=== PATIENT | female | born 1975 | race Caucasian/White ===

== ENCOUNTER 2023-12-19 19:18 | Inpatient (IN) | payer MEDICARE, MEDICAID, SELFPAY ==
[2023-12-19 20:00] VITALS: BP 127/81; PULSE 94; RESP 16; TEMP 36.3; O2SAT 97
--- NOTE | 2023-12-20 06:21 | PC.ADMIT ---
Addendum entered by Razia Bernabe RN 12/20/23 06:50: Patient also has blistered rash to left distal wrist, will need consult. Original Note: Pt is a 48 yo female admitted from [facility] for increased agitation at home. Pt has hx of anoxic brain injury at age 4, mood dysregulation, anxiety, DM type 2, HTN, HLD, and Crohn's. Pt is oriented to self and place only, developmentally delayed. Pt difficult to engage in admission, did sign CV with assistance from provider. Pt currently denies SI/HI/AVH/Depression, states she sometimes gets anxious. Pt makes good eye contact, speech delay noted. Pt has mild contractures to bilateral hands and arms, as well as bruise to each upper arm. Pt recently had foot pain during a hospitalization which caused her to remain in bed for extended period leading to bilateral leg weakness. Pt continues to have foot pain and requires one assist to ambulate, only walks short distances. Arrives in incontinence brief but unable to say why. Per crisis eval, pt lives at home with her mother who is air conditioning unit tester. Per mother, patient has had increasing anxiety and shaking at home, increased agitation toward mother. Pt refused to sign any additional paperwork.
[2023-12-20 06:50] LABS: Glucose, Whole Blood 77 mg/dL (60-115)
[2023-12-20 08:00] VITALS: BP 125/60; PULSE 89; RESP 18; TEMP 36.2; O2SAT 95
[2023-12-20 08:59] LABS: Glucose, Whole Blood 110 mg/dL (60-115)
[2023-12-20] MEDS: hydrOXYzine HCL 25 MG TABLET PO (09:28)
[2023-12-20] MEDS: Magnesium Hydrox/Alum Hydrox 30 ML ORAL.SUSP PO (09:28)
--- NOTE | 2023-12-20 12:03 | HO.PM.IMCN ---
History of Present Illness Data of Consult Service Date: 12/20/23 Requesting physician: Cleopatra Ramachandran Primary Care Provider: Unknown Physician HPI Reason for consult: Medical H and P 48-year-old female with history of Crohn's disease s/p colon resection x2 with chronic diarrhea, history of anoxic brain injury, cognitive developmental delay, mood disorder, type 2 diabetes admitted to adult Psychiatry with consult placed hospitalist service for medical H& P. The patient is a limited historian secondary to developmental delay. She is reporting diffuse abdominal pain which per ED record and nursing report, is chronic. She also has chronic diarrhea but denies any bloody stool. She has no other complaints at this time. While at [facility], hematology studies unremarkable. Renal function baseline, electrolyte levels normal. Glucose 173. Point of care glucose this morning 110. Urinalysis negative. C diff PCR negative. Urine tox screen positive for benzodiazepines only. Patient denies any alcohol use, illicit drug use, or cigarette smoking. At this time, there does not appear to be any acute medical issues. [facility] Medical History Cognitive developmental delay Crohn's disease Anoxic brain injury Type 2 diabetes mellitus Surgical History S/P colon resection Social History Household Members: Family Patient Tobacco Use Status: Never used Tobacco Use of substances other than those prescribed or required for medical reasons: No Currently Displaying Signs/Symptoms of Drug Intoxication Withdrawal: No Have you been hit, kicked, punched, or otherwise hurt by someone within the past year? If so, by whom?: No Advance Directives: No Advance Directives Information Provided: No Do you have thoughts of harming others: None Do you have a plan to hurt others: No Plan Patient : No Meds Allergies Allergy/AdvReac Type Severity Reaction Status Date / Time Cephalosporins Allergy Unknown Verified 12/19/23 23:46 sulfamethoxazole Allergy Rash Verified 12/19/23 23:46 [From Bactrim] trimethoprim Allergy Unknown Verified 12/19/23 23:46 haloperidol AdvReac Agitated Verified 12/19/23 23:46 Active Medications: Current Medications Acetaminophen (Acetaminophen 325 Mg Tablet) 650 mg PO Q6H PRN PRN Reason: Headache/Pain Mild Scale (1-3) Al Hydroxide/Mg Hydroxide (Magnesium Hydrox/Alum Hydrox 30 Ml Oral.Susp) 30 ml PO Q6H PRN PRN Reason: Heartburn/Nausea Last Admin: 12/20/23 09:28 Dose: 30 ml Cyanocobalamin (Cyanocobalamin (Vitamin B-12) 1,000 Mcg Tablet) 1,000 mcg PO ONCE ONE Stop: 12/20/23 11:53 Divalproex Sodium (Divalproex Sodium Er 500 Mg Tab.Er.24h) 1,500 mg PO BID DEBBIE Hydroxyzine HCl (Hydroxyzine Hcl 25 Mg Tablet) 25 mg PO Q6H PRN PRN Reason: Anxiety Last Admin: 12/20/23 09:28 Dose: 25 mg Magnesium Hydroxide (Milk Of Magnesia 30 Ml Oral.Susp) 30 ml PO DAILY PRN PRN Reason: Constipation Non-Formulary Medication (Diclofenac Sodium Topical 1%) 4 g TOPICAL QID DEBBIE Omeprazole (Omeprazole 40 Mg Capsule.Dr) 40 mg PO DAILY@0630 DEBBEI Trazodone HCl (Trazodone Hcl 50 Mg Tablet) 50 mg PO BEDTIME MRX1 PRN PRN Reason: Insomnia Home Medications ?Medication ?Instructions ?Recorded ?Confirmed ?Last Taken ?Type dexlansoprazole 60 mg 60 mg PO DAILY 12/19/23 12/20/23 Unknown History capsule,biphase delayed release diclofenac sodium 1 % topical gel 1 ea topical QID 12/19/23 12/20/23 Unknown History divalproex 250 mg tablet,extended 1,500 mg PO BID 12/19/23 12/20/23 Unknown History release 24 hr (Depakote ER) fluoxetine 20 mg capsule 80 mg PO DAILY 12/19/23 12/20/23 Unknown History fluticasone propionate 50 1 spray intranasal BID 12/19/23 12/20/23 Unknown History mcg/actuation nasal spray,suspension gabapentin 400 mg capsule 400 mg PO QID 12/19/23 12/20/23 Unknown History glimepiride 4 mg tablet 4 mg PO QAM 12/19/23 12/20/23 Unknown History cyanocobalamin (vitamin B-12) 1,000 mcg PO DAILY 12/20/23 12/20/23 Unknown History 1,000 mcg tablet ergocalciferol (vitamin D2) 1,250 1,250 mcg PO Q2W 12/20/23 12/20/23 Unknown History mcg (50,000 unit) capsule hydroxyzine pamoate 50 mg capsule 50 mg PO BID PRN anxiety 12/20/23 12/20/23 Unknown History levonorgestrel 0.15 mg-ethinyl 1 tab PO DAILY 12/20/23 12/20/23 Unknown History estradiol 30 mcg tablets,3 mos pack(91) levothyroxine 75 mcg tablet 75 mcg PO QAM 12/20/23 12/20/23 Unknown History lisinopril 2.5 mg tablet 2.5 mg PO DAILY 12/20/23 12/20/23 Unknown History lorazepam 0.5 mg tablet 0.5 mg PO DAILY anxiety 12/20/23 12/20/23 Unknown History lurasidone 80 mg tablet 80 mg PO DAILY 12/20/23 12/20/23 Unknown History metformin 1,000 mg tablet 1,000 mg PO QAM 12/20/23 12/20/23 Unknown History metformin 1,000 mg tablet 1,000 mg PO QAM 12/20/23 12/20/23 Unknown History omeprazole 40 mg capsule,delayed 40 mg PO DAILY 12/20/23 12/20/23 Unknown History release pantoprazole 20 mg tablet,delayed 20 mg PO Q12H 12/20/23 12/20/23 Unknown History release pravastatin 20 mg tablet 20 mg PO BEDTIME cholesterol 12/20/23 12/20/23 Unknown History sodium bicarbonate 650 mg tablet 1,300 mg PO TID 12/20/23 12/20/23 Unknown History sucralfate 1 gram tablet 1 g PO QID 12/20/23 12/20/23 Unknown History tirzepatide 2.5 mg/0.5 mL 2.5 mg subcut QWEEK 12/20/23 12/20/23 Unknown History subcutaneous pen injector (Mounjaro) Physical Exam Vital Signs and Narrative: Vital Signs: Last Vital Signs Temp 97.2 F 12/20/23 08:00 Pulse 89 12/20/23 08:00 Resp 18 12/20/23 08:00 BP 125/60 12/20/23 08:00 Pulse Ox 95 12/20/23 08:00 O2 Del Method Room Air 12/20/23 08:00 Constitutional - Awake and Alert, No apparent distress Eyes - refused CN exam, but eyes appear to be tracking appropriately, pupils equal in size Cardiovascular - S1S2, RRR, No edema Respiratory - Normal lung expansion, Normal respiratory effort, No respiratory distress, CTA bilaterally Gastrointestinal - NT / ND; +BS; No rebound or guarding Extremities - no calf tenderness bilaterally, no swelling Musculoskeletal - Normal inspection, normal ROM Skin - Warm/Dry Neurological - Alert & oriented to self, refused CN exam, but eyes appear to be tracking appropriately, pupils equal in size, 5/5 strength BUE and BLE Psychological - Appropriate affect Results Labs Labs: Laboratory Results - last 24 hr 12/20/23 12/20/23 06:46 08:41 POC Glucose 77 110 Assessment and Plan (1) Routine medical exam: Status: Acute Plan 48-year-old female with history of Crohn's disease s/p colon resection x2 with chronic diarrhea, history of anoxic brain injury, cognitive developmental delay, mood disorder, type 2 diabetes admitted to adult Psychiatry with consult placed hospitalist service for medical H& P. #Mood disorder/cognitive delay -plan per Psychiatry # Crohn's disease s/p colon resection -does not appear to be in acute exacerbation. ?abd pain/chronic diarrhea r/t crohns vs IR metformin # [id number] type 2 diabetes -per rn, last hemoglobin A1c 7.4% -recommend checking POC b.i.d. -recommend diabetic diet if patient agreeable -change metformin 1000mg to ER formulation to see if this alleviates any of her abdominal pain/diarrhea -continue glimepiride -continue lisinopril for renal protection given history of diabetes. Does not appear to have any history of hypertension documented # hypothyroidism -continue levothyroxine # Chronic diarrhea/abd pain -as above. Cdiff pcr negative. Thank you for allowing me to participate in this consult. Signing off at this time. Please do not hesitate to call for further questions or for any acute medical issues
--- NOTE | 2023-12-20 12:33 | HO.PSYADMNOT ---
HPI Date of Service: 12/20/23 Chief Complaint: UNSPECIFIED MOOD DISORDER Sources of Information: patient interviewed, chart reviewed and crisis/core team assessment reviewed HPI Subjective Notes: Conditional Voluntary Healthcare Proxy: No Guardianship: No Medical Problems Affecting Mental Status: No Narrative: Patient is a 48-year-old female with a history of Crohn's disease anoxic brain injury cognitive developmental delay and anxiety who presented to [facility] with increasing aggression she was transferred to [facility] and admitted to on conditional voluntary. Patient has a legal guardian who is an trade mark attorney Suni Dickinson at [phone]. I was unable to reach Suni by phone; I spoke with brinda's mother who was her guardian up unitl fall 2022. She will be faxing guardianship paperwork. Patient is cooperative and pleasant. She remains in good behavioral control. She denies SI or HI. Patient has a DDS worker. She does have outpatient therapy and psychiatrist although the details of that an unknown Past Psychiatric History: Patient has history of inpatient level of care for mental health last hospitalization was approximately 5 months ago Medical Evaluation Reviewed: Yes [facility] Medical History (Updated 12/21/23 @ 14:59 by Cleopatra Ramachandran APRN) Cognitive developmental delay Crohn's disease Anoxic brain injury Type 2 diabetes mellitus Surgical History S/P colon resection Family History: Living with her mother Avis who is her caregiver. Avis is 70 years old and recently transferred guardianship to a local trade mark attorney in [place]. Social History: Patient had anoxic brain injury age 4. Substance History: None known Trauma History: None known Diagnostics Vital Signs (24Hr): Vital Signs - 24 hr 12/19/23 20:00 12/20/23 08:00 Temperature 97.3 F 97.2 F Pulse Rate 94 89 Respiratory Rate 16 18 Blood Pressure 127/81 125/60 Pulse Oximetry 97 95 Oxygen Delivery Method Room Air Room Air Labs 12/21/23 07:09 Labs: Laboratory Results - last 48 hr 12/20/23 12/20/23 06:46 08:41 POC Glucose 77 110 Meds/Allergies Meds Home Medications ?Medication ?Instructions ?Recorded ?Confirmed ?Type dexlansoprazole 60 mg 60 mg PO DAILY 12/19/23 12/20/23 History capsule,biphase delayed release diclofenac sodium 1 % topical gel 1 ea topical QID 12/19/23 12/20/23 History divalproex 250 mg tablet,extended 1,500 mg PO BID 12/19/23 12/20/23 History release 24 hr (Depakote ER) fluoxetine 20 mg capsule 80 mg PO DAILY 12/19/23 12/20/23 History fluticasone propionate 50 1 spray intranasal BID 12/19/23 12/20/23 History mcg/actuation nasal spray,suspension gabapentin 400 mg capsule 400 mg PO QID 12/19/23 12/20/23 History glimepiride 4 mg tablet 4 mg PO QAM 12/19/23 12/20/23 History cyanocobalamin (vitamin B-12) 1,000 mcg PO DAILY 12/20/23 12/20/23 History 1,000 mcg tablet ergocalciferol (vitamin D2) 1,250 1,250 mcg PO Q2W 12/20/23 12/20/23 History mcg (50,000 unit) capsule hydroxyzine pamoate 50 mg capsule 50 mg PO BID PRN anxiety 12/20/23 12/20/23 History levonorgestrel 0.15 mg-ethinyl 1 tab PO DAILY 12/20/23 12/20/23 History estradiol 30 mcg tablets,3 mos pack(91) levothyroxine 75 mcg tablet 75 mcg PO QAM 12/20/23 12/20/23 History lisinopril 2.5 mg tablet 2.5 mg PO DAILY 12/20/23 12/20/23 History lorazepam 0.5 mg tablet 0.5 mg PO DAILY anxiety 12/20/23 12/20/23 History lurasidone 80 mg tablet 80 mg PO DAILY 12/20/23 12/20/23 History metformin 1,000 mg tablet 1,000 mg PO QAM 12/20/23 12/20/23 History metformin 1,000 mg tablet 1,000 mg PO QAM 12/20/23 12/20/23 History omeprazole 40 mg capsule,delayed 40 mg PO DAILY 12/20/23 12/20/23 History release pantoprazole 20 mg tablet,delayed 20 mg PO Q12H 12/20/23 12/20/23 History release pravastatin 20 mg tablet 20 mg PO BEDTIME cholesterol 12/20/23 12/20/23 History sodium bicarbonate 650 mg tablet 1,300 mg PO TID 12/20/23 12/20/23 History sucralfate 1 gram tablet 1 g PO QID 12/20/23 12/20/23 History tirzepatide 2.5 mg/0.5 mL 2.5 mg subcut QWEEK 12/20/23 12/20/23 History subcutaneous pen injector (Mounjaro) Allergies Allergies Allergy/AdvReac Type Severity Reaction Status Date / Time Cephalosporins Allergy Unknown Verified 12/19/23 23:46 sulfamethoxazole Allergy Rash Verified 12/19/23 23:46 [From Bactrim] trimethoprim Allergy Unknown Verified 12/19/23 23:46 haloperidol AdvReac Agitated Verified 12/19/23 23:46 Mental Status Exam Mental Status Exam Patient Appearance: Disheveled Patient Orientation: Person, Place, Time and Situation Level of Consciousness: Awake Patient Behavior: Appropriate Mood Description: Appropriate Affect Description: Appropriate Patient Cognition Impaired: Yes Ability to Follow Directions: Good Speech Pattern: Spontaneous Speech Hallucinations: None Thought Process: Goal Oriented Thought Content: positive for [place] Judgement: Fair Assessment & Plan Assessment & Plan (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: Status: Acute Code(s): F06.4 - Anxiety disorder due to known physiological condition (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: Status: Acute Code(s): F06.30 - Mood disorder due to known physiological condition, unspecified; S06.9XAS - Unspecified intracranial injury with loss of consciousness status unknown, sequela Plan liana to m5 on cv 15 min checks continue home medications obtain guardian ship Paperwork contact guardian and collect collateral info discharge planning ' Patient educated on: diagnosis, medication risk/benefits and therapeutic strategies Informed Consent: further education needed Reason for continued inpatient stay Substantial Risk for: harm to self, harm to others and inability to function Statement Statement: I have reviewed the history and physical and performed a pertinent examination on my patient. No changes have occurred unless specified. If the History and Physical was not performed prior to admission, the Hospitalist's service will be consulted for completing the admission physical. Time Spent With Patient Time: Total time managing care of this patient today ____ minutes.
[2023-12-20] MEDS: Gabapentin 400 MG CAPSULE PO ×3 (13:09→23:09)
[2023-12-20] MEDS: Loperamide HCl 2 MG CAPSULE PO ×2 (13:09→23:10)
[2023-12-20] MEDS: Sucralfate 1 GM TABLET PO ×3 (13:09→23:10)
[2023-12-20] MEDS: Levothyroxine Sodium 75 MCG TABLET PO (13:09)
[2023-12-20] MEDS: FLUoxetine HCl 20 MG CAPSULE 80 MG PO (13:09)
[2023-12-20] MEDS: Omeprazole 40 MG CAPSULE.DR PO (13:09)
[2023-12-20] MEDS: Divalproex Sodium ER 500 MG TAB.ER.24H 1500 MG PO ×2 (13:09→23:10)
[2023-12-20] MEDS: Cyanocobalamin (Vitamin B-12) 1,000 MCG TABLET 1000 MCG PO (13:09)
[2023-12-20] MEDS: LORazepam 0.5 MG TABLET PO (13:09)
[2023-12-20] MEDS: metFORMIN HCl ER 500 MG TAB.ER.24H 1000 MG PO (13:09)
[2023-12-20 20:00] VITALS: BP 128/79; PULSE 114; RESP 16; TEMP 36.1; O2SAT 95
[2023-12-20] MEDS: Sodium Bicarbonate 650 MG TABLET 1300 MG PO (23:09)
[2023-12-20] MEDS: Pravastatin Sodium 20 MG TABLET PO (23:10)
[2023-12-21] MEDS: Levothyroxine Sodium 75 MCG TABLET PO (07:19)
[2023-12-21] MEDS: Omeprazole 40 MG CAPSULE.DR PO (07:19)
[2023-12-21 07:34] LABS: Estimated Average Glucose 169 mg/dL; Hemoglobin A1c % 7.5 % (<6.0)
[2023-12-21 07:41] LABS: Cholesterol 165 mg/dL (<200); HDL Cholesterol 33 mg/dL (>40); LDL Cholesterol Calculated 82 mg/dL (<100); Magnesium 1.5 mg/dL (1.6-2.6); Triglycerides 253 mg/dL (<150)
[2023-12-21 07:43] LABS: Estimated Glomerular Filt Rate > 60
[2023-12-21 07:54] LABS: Thyroid Stimulating Hormone 1.98 uIU/mL (0.32-4.0)
[2023-12-21 08:09] LABS: Folate 12.5 ng/mL (> or = 4.0); Vitamin B12 1784 pg/mL (200-900)
[2023-12-21 08:37] LABS: Glucose, Whole Blood 197 mg/dL (60-115)
[2023-12-21 08:45] VITALS: BP 140/68; PULSE 114; RESP 16; TEMP 35.9; O2SAT 95
[2023-12-21] MEDS: metFORMIN HCl ER 500 MG TAB.ER.24H 1000 MG PO (08:58)
[2023-12-21] MEDS: Lurasidone HCl 80 MG TABLET PO (08:59)
[2023-12-21] MEDS: Gabapentin 400 MG CAPSULE PO ×4 (08:59→20:52)
[2023-12-21] MEDS: FLUoxetine HCl 20 MG CAPSULE 80 MG PO (08:59)
[2023-12-21] MEDS: Sucralfate 1 GM TABLET PO ×4 (08:59→20:52)
[2023-12-21] MEDS: Sodium Bicarbonate 650 MG TABLET 1300 MG PO ×3 (09:01→20:52)
[2023-12-21 09:02] VITALS: BP 140/68
[2023-12-21] MEDS: Divalproex Sodium ER 500 MG TAB.ER.24H 1500 MG PO ×2 (09:02→20:51)
[2023-12-21] MEDS: lisinopriL 2.5 MG TABLET PO (09:02)
[2023-12-21] MEDS: glipiZIDE 10 MG TABLET PO (09:07)
[2023-12-21] MEDS: Triamcinolone Acet 0.1 % Cream 15 GM TUBE 1 APPL TOPICAL ×2 (09:08→22:15)
[2023-12-21] MEDS: Fluticasone Propionate Nasal 16 GM SPRAY 1 SPRAY NOSTRIL-B (09:08)
--- NOTE | 2023-12-21 16:42 | HO.PSYCHPN ---
Subjective Subjective Date of Service: 12/14/23 Reason For Visit: UNSPECIFIED MOOD DISORDER Subjective Notes: Conditional Voluntary Interim History: spoke with pts mother today; unable to reach guardian; mother faxed copy of current court order which includes [place] order and sub judgemnt ; it does not appear to say its limits her ability to consent to treatmetn or admission. Copy of order in chart. T/c to guardian -no answer. Pt is bright, cooperative, somewhat cheerful upon apprach; she showered, accepts help and is in good behavioral control Medication Compliance: Yes Side effects from medications: No Attending Groups: No Review of Systems Acute medical concerns: No Medical Review of Systems: unchanged Mental Status Exam Mental Status Exam Patient Appearance: Well Grooomed and Appropriate Patient Orientation: Person, Place, Time and Situation Level of Consciousness: Awake Patient Behavior: Appropriate Mood Description: Appropriate and Anxious Affect Description: Appropriate Patient Cognition Impaired: Yes Ability to Follow Directions: Good Speech Pattern: Spontaneous Speech Judgement: Fair Diagnostics Vital Signs (24Hr): Vital Signs - 24 hr 12/20/23 20:00 12/21/23 08:45 12/21/23 09:02 Temperature 96.9 F 96.6 F L Pulse Rate 114 H 114 H Respiratory Rate 16 16 Blood Pressure 128/79 140/68 H 140/68 H Pulse Oximetry 95 95 Oxygen Delivery Method Room Air Room Air Labs 12/21/23 07:09 Labs: Laboratory Results - last 48 hr 12/20/23 12/20/23 12/21/23 06:46 08:41 07:09 Creatinine 0.75 Estim Creat Clear Calc TNP Estimated GFR > 60 POC Glucose 77 110 Estimat Average Glucose 169 Hemoglobin A1c % 7.5 H Magnesium 1.5 L Triglycerides 253 H Cholesterol 165 LDL Cholesterol, Calc 82 HDL Cholesterol 33 L Vitamin B12 1784 H Folate 12.5 TSH 1.98 Free T4 1.00 12/21/23 08:31 Creatinine Estim Creat Clear Calc Estimated GFR POC Glucose 197 H Estimat Average Glucose Hemoglobin A1c % Magnesium Triglycerides Cholesterol LDL Cholesterol, Calc HDL Cholesterol Vitamin B12 Folate TSH Free T4 Medications Medications Current Medications Acetaminophen (Acetaminophen 325 Mg Tablet) 650 mg PO Q6H PRN PRN Reason: Headache/Pain Mild Scale (1-3) Al Hydroxide/Mg Hydroxide (Magnesium Hydrox/Alum Hydrox 30 Ml Oral.Susp) 30 ml PO Q6H PRN PRN Reason: Heartburn/Nausea Last Admin: 12/20/23 09:28 Dose: 30 ml Divalproex Sodium (Divalproex Sodium Er 500 Mg Tab.Er.24h) 1,500 mg PO BID [facility] Last Admin: 12/21/23 09:02 Dose: 1,500 mg Fluoxetine HCl (Fluoxetine Hcl 20 Mg Capsule) 80 mg PO DAILY [facility] Last Admin: 12/21/23 08:59 Dose: 80 mg Fluticasone Propionate (Fluticasone Propionate Nasal 16 Gm [place]) 1 spray NOSTRIL-B DAILY [facility] Last Admin: 12/21/23 09:08 Dose: 1 spray Gabapentin (Gabapentin 400 Mg Capsule) 400 mg PO QID [facility] Last Admin: 12/21/23 13:08 Dose: 400 mg Glipizide (Glipizide 10 Mg Tablet) 10 mg PO DAILY [facility] Last Admin: 12/21/23 09:07 Dose: 10 mg Hydroxyzine HCl (Hydroxyzine Hcl 50 Mg Tablet) 50 mg PO BID PRN PRN Reason: Anxiety Hydroxyzine HCl (Hydroxyzine Hcl 25 Mg Tablet) 25 mg PO DAILY PRN PRN Reason: Anxiety Levothyroxine Sodium (Levothyroxine Sodium 75 Mcg Tablet) 75 mcg PO DAILY@0600 [facility] Last Admin: 12/21/23 07:19 Dose: 75 mcg Lisinopril (Lisinopril 2.5 Mg Tablet) 2.5 mg PO DAILY [facility]; Protocol Last Admin: 12/21/23 09:02 Dose: 2.5 mg Loperamide HCl (Loperamide Hcl 2 Mg Capsule) 2 mg PO Q6H PRN PRN Reason: Diarrhea Last Admin: 12/20/23 23:10 Dose: 2 mg Lorazepam (Lorazepam 0.5 Mg Tablet) 0.5 mg PO DAILY PRN PRN Reason: Anxiety Last Admin: 12/20/23 13:09 Dose: 0.5 mg Lurasidone HCl (Lurasidone Hcl 80 Mg Tablet) 80 mg PO DAILY [facility] Last Admin: 12/21/23 08:59 Dose: 80 mg Magnesium Hydroxide (Milk Of Magnesia 30 Ml Oral.Susp) 30 ml PO DAILY PRN PRN Reason: Constipation Metformin HCl (Metformin Hcl Er 500 Mg Tab.Er.24h) 1,000 mg PO DAILY [facility] Last Admin: 12/21/23 08:58 Dose: 1,000 mg Non-Formulary Medication (Seasonale) 0 mg PO DAILY [facility] Omeprazole (Omeprazole 40 Mg Capsule.Dr) 40 mg PO DAILY@0630 [facility] Last Admin: 12/21/23 07:19 Dose: 40 mg Pravastatin Sodium (Pravastatin Sodium 20 Mg Tablet) 20 mg PO BEDTIME [facility] Last Admin: 12/20/23 23:10 Dose: 20 mg Sodium Bicarbonate (Sodium Bicarbonate 650 Mg Tablet) 1,300 mg PO TID [facility] Last Admin: 12/21/23 15:27 Dose: 1,300 mg Sucralfate (Sucralfate 1 Gm Tablet) 1 gm PO QID [facility] Last Admin: 12/21/23 13:07 Dose: 1 gm Trazodone HCl (Trazodone Hcl 50 Mg Tablet) 50 mg PO BEDTIME MRX1 PRN PRN Reason: Insomnia Triamcinolone Acetonide (Triamcinolone Acet 0.1 % Cream 15 Gm Tube) 1 appl TOPICAL BID [facility]; Protocol Last Admin: 12/21/23 09:08 Dose: 1 appl Allergies Allergies Allergy/AdvReac Type Severity Reaction Status Date / Time Cephalosporins Allergy Unknown Verified 12/19/23 23:46 sulfamethoxazole Allergy Rash Verified 12/19/23 23:46 [From Bactrim] trimethoprim Allergy Unknown Verified 12/19/23 23:46 haloperidol AdvReac Agitated Verified 12/19/23 23:46 Assessment & Plan Assessment & Plan (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: Status: Acute Code(s): F06.4 - Anxiety disorder due to known physiological condition (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: Status: Acute Code(s): F06.30 - Mood disorder due to known physiological condition, unspecified; S06.9XAS - Unspecified intracranial injury with loss of consciousness status unknown, sequela Plan liana to m5 on cv 15 min checks continue home medications obtain guardian ship Paperwork contact guardian and collect collateral info discharge planning 12/20 continue tx plan Reason for continued inpatient stay Substantial Risk for: harm to self, harm to others and inability to function Time Spent With Patient Time: Total time managing care of this patient today ____ minutes.
[2023-12-21 19:58] VITALS: BP 128/70; PULSE 112; RESP 18; TEMP 36.5; O2SAT 96
[2023-12-21] MEDS: Pravastatin Sodium 20 MG TABLET PO (20:52)
[2023-12-21 23:20] LABS: Glucose, Whole Blood 231 mg/dL (60-115)
[2023-12-22] MEDS: Levothyroxine Sodium 75 MCG TABLET PO (06:24)
[2023-12-22] MEDS: Omeprazole 40 MG CAPSULE.DR PO (06:24)
[2023-12-22 08:44] LABS: Glucose, Whole Blood 163 mg/dL (60-115)
[2023-12-22 09:48] VITALS: BP 160/88; PULSE 122; RESP 16; TEMP 36.3; O2SAT 97
[2023-12-22] MEDS: Insulin Lispro 100 UNIT/ML 3 ML VIAL SUBCUT ×4 (09:58→20:06)
--- NOTE | 2023-12-22 10:13 | HO.PSYCHPN ---
Subjective Subjective Date of Service: 12/22/23 Reason For Visit: UNSPECIFIED MOOD DISORDER Subjective Notes: Conditional Voluntary Guardianship: Yes Interim History: Pt slept through the night. No aggression seen here on the unit. She is taking medications as prescribed. This administrative underwriter approached pt and she states she does not want to talk but instead asks this administrative underwriter to help her find her room. Attempts to asked few short questions, pt repeated I don't want to talk. She did denied any physical concerns. Mother called- reported she was aware pt's depakote level's were 101. Mother report pthas been on depakote due to seizures but no seizures in years. She reports pt gets more agitated when levels up. I will check ammonia levels as well. We discussed lowering depakote level to 1250mg po BID- mother reports it was recently increased. Depakote levels tomorrow prior to morning dose. Diagnostics Vital Signs (24Hr): Vital Signs - 24 hr 12/21/23 19:58 12/22/23 09:48 Temperature 97.7 F 97.3 F Pulse Rate 112 H 122 H Respiratory Rate 18 16 Blood Pressure 128/70 160/88 H Pulse Oximetry 96 97 Oxygen Delivery Method Room Air Room Air Labs 12/21/23 07:09 Labs: Laboratory Results - last 48 hr 12/21/23 12/21/23 12/21/23 07:09 08:31 23:16 Creatinine 0.75 Estim Creat Clear Calc TNP Estimated GFR > 60 POC Glucose 197 H 231 H Estimat Average Glucose 169 Hemoglobin A1c % 7.5 H Magnesium 1.5 L Triglycerides 253 H Cholesterol 165 LDL Cholesterol, Calc 82 HDL Cholesterol 33 L Vitamin B12 1784 H Folate 12.5 TSH 1.98 Free T4 1.00 12/22/23 08:39 Creatinine Estim Creat Clear Calc Estimated GFR POC Glucose 163 H Estimat Average Glucose Hemoglobin A1c % Magnesium Triglycerides Cholesterol LDL Cholesterol, Calc HDL Cholesterol Vitamin B12 Folate TSH Free T4 Medications Medications Current Medications Acetaminophen (Acetaminophen 325 Mg Tablet) 650 mg PO Q6H PRN PRN Reason: Headache/Pain Mild Scale (1-3) Al Hydroxide/Mg Hydroxide (Magnesium Hydrox/Alum Hydrox 30 Ml Oral.Susp) 30 ml PO Q6H PRN PRN Reason: Heartburn/Nausea Last Admin: 12/20/23 09:28 Dose: 30 ml Divalproex Sodium (Divalproex Sodium Er 500 Mg Tab.Er.24h) 1,500 mg PO BID [facility] Last Admin: 12/21/23 20:51 Dose: 1,500 mg Fluoxetine HCl (Fluoxetine Hcl 20 Mg Capsule) 80 mg PO DAILY [facility] Last Admin: 12/21/23 08:59 Dose: 80 mg Fluticasone Propionate (Fluticasone Propionate Nasal 16 Gm [place]) 1 spray NOSTRIL-B DAILY [facility] Last Admin: 12/21/23 09:08 Dose: 1 spray Gabapentin (Gabapentin 400 Mg Capsule) 400 mg PO QID [facility] Last Admin: 12/21/23 20:52 Dose: 400 mg Glipizide (Glipizide 10 Mg Tablet) 10 mg PO DAILY [facility] Last Admin: 12/21/23 09:07 Dose: 10 mg Glucose (Glucose Gel 15 Gm Gel..Gram.) 15 gm PO Q15M PRN; Protocol PRN Reason: per Hypoglycemia Standing Ord. Hydroxyzine HCl (Hydroxyzine Hcl 50 Mg Tablet) 50 mg PO BID PRN PRN Reason: Anxiety Hydroxyzine HCl (Hydroxyzine Hcl 25 Mg Tablet) 25 mg PO DAILY PRN PRN Reason: Anxiety Insulin Human Lispro (Insulin Lispro 100 Unit/Ml 3 Ml Vial) 0 unit SUBCUT QIDACHS [facility]; Protocol Last Admin: 12/22/23 09:58 Dose: 2 unit Levothyroxine Sodium (Levothyroxine Sodium 75 Mcg Tablet) 75 mcg PO DAILY@0600 [facility] Last Admin: 12/22/23 06:24 Dose: 75 mcg Lisinopril (Lisinopril 2.5 Mg Tablet) 2.5 mg PO DAILY [facility]; Protocol Last Admin: 12/21/23 09:02 Dose: 2.5 mg Loperamide HCl (Loperamide Hcl 2 Mg Capsule) 2 mg PO Q6H PRN PRN Reason: Diarrhea Last Admin: 12/20/23 23:10 Dose: 2 mg Lorazepam (Lorazepam 0.5 Mg Tablet) 0.5 mg PO DAILY PRN PRN Reason: Anxiety Last Admin: 12/20/23 13:09 Dose: 0.5 mg Lurasidone HCl (Lurasidone Hcl 80 Mg Tablet) 80 mg PO DAILY [facility] Last Admin: 12/21/23 08:59 Dose: 80 mg Magnesium Hydroxide (Milk Of Magnesia 30 Ml Oral.Susp) 30 ml PO DAILY PRN PRN Reason: Constipation Metformin HCl (Metformin Hcl Er 500 Mg Tab.Er.24h) 1,000 mg PO DAILY [facility] Last Admin: 12/21/23 08:58 Dose: 1,000 mg Non-Formulary Medication (Seasonale) 0 mg PO DAILY [facility] Omeprazole (Omeprazole 40 Mg Capsule.Dr) 40 mg PO DAILY@0630 [facility] Last Admin: 12/22/23 06:24 Dose: 40 mg Pravastatin Sodium (Pravastatin Sodium 20 Mg Tablet) 20 mg PO BEDTIME [facility] Last Admin: 12/21/23 20:52 Dose: 20 mg Sodium Bicarbonate (Sodium Bicarbonate 650 Mg Tablet) 1,300 mg PO TID [facility] Last Admin: 12/21/23 20:52 Dose: 1,300 mg Sucralfate (Sucralfate 1 Gm Tablet) 1 gm PO QID [facility] Last Admin: 12/21/23 20:52 Dose: 1 gm Trazodone HCl (Trazodone Hcl 50 Mg Tablet) 50 mg PO BEDTIME MRX1 PRN PRN Reason: Insomnia Triamcinolone Acetonide (Triamcinolone Acet 0.1 % Cream 15 Gm Tube) 1 appl TOPICAL BID [facility]; Protocol Last Admin: 12/21/23 22:15 Dose: 1 appl Allergies Allergies Allergy/AdvReac Type Severity Reaction Status Date / Time Cephalosporins Allergy Unknown Verified 12/19/23 23:46 sulfamethoxazole Allergy Rash Verified 12/19/23 23:46 [From Bactrim] trimethoprim Allergy Unknown Verified 12/19/23 23:46 haloperidol AdvReac Agitated Verified 12/19/23 23:46 Assessment & Plan Assessment & Plan (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 Will check ammonia today. decrease depakote to 1250mg po BID. Reason for continued inpatient stay Substantial Risk for: harm to others and inability to function Time Spent With Patient Time: Total time managing care of this patient today ____ minutes.
[2023-12-22 11:02] VITALS: BP 160/88
[2023-12-22] MEDS: Sodium Bicarbonate 650 MG TABLET 1300 MG PO ×3 (11:02→20:05)
[2023-12-22] MEDS: lisinopriL 2.5 MG TABLET PO (11:02)
[2023-12-22] MEDS: Sucralfate 1 GM TABLET PO ×4 (11:02→20:06)
[2023-12-22] MEDS: Gabapentin 400 MG CAPSULE PO ×4 (11:02→20:05)
[2023-12-22] MEDS: Divalproex Sodium ER 500 MG TAB.ER.24H 1500 MG PO (11:02)
[2023-12-22] MEDS: FLUoxetine HCl 20 MG CAPSULE 80 MG PO (11:02)
[2023-12-22] MEDS: Lurasidone HCl 80 MG TABLET PO (11:02)
[2023-12-22] MEDS: glipiZIDE 10 MG TABLET PO (11:03)
[2023-12-22] MEDS: metFORMIN HCl ER 500 MG TAB.ER.24H 1000 MG PO (11:03)
[2023-12-22] MEDS: Triamcinolone Acet 0.1 % Cream 15 GM TUBE 1 APPL TOPICAL ×2 (11:06→20:07)
[2023-12-22 13:14] LABS: Glucose, Whole Blood 400 mg/dL (60-115)
[2023-12-22 17:57] LABS: Glucose, Whole Blood 187 mg/dL (60-115)
[2023-12-22 20:00] VITALS: BP 126/72; PULSE 114; RESP 18; TEMP 36.4; O2SAT 96
[2023-12-22] MEDS: traZODone HCL 50 MG TABLET PO (20:06)
[2023-12-22] MEDS: Divalproex Sodium ER 250 MG TAB.ER.24H 1250 MG PO (20:06)
[2023-12-22] MEDS: Pravastatin Sodium 20 MG TABLET PO (20:06)
[2023-12-22 20:14] LABS: Glucose, Whole Blood 186 mg/dL (60-115)
[2023-12-23] MEDS: Levothyroxine Sodium 75 MCG TABLET PO (06:04)
[2023-12-23] MEDS: Omeprazole 40 MG CAPSULE.DR PO (06:04)
[2023-12-23 08:00] VITALS: BP 128/63; PULSE 102; TEMP 36.4; O2SAT 97
[2023-12-23 08:23] LABS: Valproate 88.7 mcg/mL (50.0-100.0)
[2023-12-23 08:26] LABS: Alanine Aminotransferase 20 U/L (0-31); Albumin Level 3.3 g/dL (3.5-5.0); Alkaline Phosphatase 54 U/L (39-117); Anion Gap 18 (12-20); Aspartate Amino Transferase 18 U/L (5-31); Bilirubin Total 0.4 mg/dL (0.0-1.0); Blood Urea Nitrogen 15 mg/dL (9-16); Calcium 9.2 mg/dL (8.4-10.2); Carbon Dioxide 23 mmol/L (22-29); Chloride 102 mmol/L (96-108); Estimated Glomerular Filt Rate > 60; Glucose Random 209 mg/dL (60-115); Potassium 4.5 mmol/L (3.3-5.1); Sodium 138 mmol/L (135-145); Total Protein 6.6 g/dL (6.5-8.0)
[2023-12-23 08:27] LABS: Glucose, Whole Blood 201 mg/dL (60-115)
[2023-12-23] MEDS: Lurasidone HCl 80 MG TABLET PO (09:12)
[2023-12-23] MEDS: glipiZIDE 10 MG TABLET PO (09:12)
[2023-12-23 09:13] VITALS: BP 128/63
[2023-12-23] MEDS: Sucralfate 1 GM TABLET PO ×4 (09:13→21:55)
[2023-12-23] MEDS: lisinopriL 2.5 MG TABLET PO (09:13)
[2023-12-23] MEDS: Sodium Bicarbonate 650 MG TABLET 1300 MG PO ×3 (09:13→21:55)
[2023-12-23] MEDS: Divalproex Sodium ER 250 MG TAB.ER.24H 1250 MG PO ×2 (09:13→21:54)
[2023-12-23] MEDS: metFORMIN HCl ER 500 MG TAB.ER.24H 1000 MG PO (09:14)
[2023-12-23] MEDS: Gabapentin 400 MG CAPSULE PO ×4 (09:14→21:55)
[2023-12-23] MEDS: FLUoxetine HCl 20 MG CAPSULE 80 MG PO (09:14)
[2023-12-23] MEDS: Insulin Lispro 100 UNIT/ML 3 ML VIAL SUBCUT ×4 (09:16→21:55)
[2023-12-23] MEDS: Triamcinolone Acet 0.1 % Cream 15 GM TUBE 1 APPL TOPICAL ×2 (09:32→22:25)
[2023-12-23] MEDS: Fluticasone Propionate Nasal 16 GM SPRAY 1 SPRAY NOSTRIL-B (09:33)
[2023-12-23 13:00] LABS: Ammonia 37 umol/L (13-55)
[2023-12-23 13:16] LABS: Glucose, Whole Blood 304 mg/dL (60-115)
--- NOTE | 2023-12-23 17:10 | P.PNPSI_ITS ---
Subjective Subjective Date of Service: 12/23/23 Reason For Visit: UNSPECIFIED MOOD DISORDER Subjective Notes: Conditional Voluntary Healthcare Proxy: No Guardianship: Yes Medical Problems Affecting Mental Status: Yes Interim History: Quiet when approached. Seen x 3. Reports GI sx with Chron's disease. More talkative with approaches. Reports frustration with medical problems. Ammonia 37, Valproate 88.7. When asked how we can be helfpul pt asks that we change her life for the better, help her to feel better. Medication Compliance: Yes Side effects from medications: No Attending Groups: No Review of Systems Acute medical concerns: Yes Chron's, DM Medical Review of Systems: unchanged Review of Systems Review of Systems Chron's sx Mental Status Exam Mental Status Exam Patient Appearance: Appropriate Patient Orientation: Person, Place and Situation Level of Consciousness: Alert Patient Behavior: Talkative, Cooperative and Good Eye Contact Mood Description: Depressed Affect Description: Flat Patient Cognition Impaired: Yes Ability to Follow Directions: Good Speech Pattern: Spontaneous Speech Memory Description: Episodic Impaired Hallucinations: None Delusions: Not Present Thought Process: Rumination Thought Content: positive for [place] and positive for Circumstantial Depressive Symptoms: Increased Irritability Judgement: Poor Diagnostics Vital Signs (24Hr): Vital Signs - 24 hr 12/22/23 20:00 12/23/23 08:00 12/23/23 09:13 Temperature 97.5 F 97.6 F Pulse Rate 114 H 102 H Respiratory Rate 18 Blood Pressure 126/72 128/63 128/63 Pulse Oximetry 96 97 Oxygen Delivery Method Room Air Room Air Labs 12/23/23 08:04 Labs: Laboratory Results - last 48 hr 12/21/23 12/22/23 12/22/23 23:16 08:39 13:10 Sodium Potassium Chloride Carbon Dioxide Anion Gap BUN Creatinine Estim Creat Clear Calc Estimated GFR POC Glucose 231 H 163 H 400 H* Random Glucose Calcium Total Bilirubin AST ALT Alkaline Phosphatase Ammonia Total Protein Albumin Valproic Acid 12/22/23 12/22/23 12/23/23 17:53 20:00 08:03 Sodium Potassium Chloride Carbon Dioxide Anion Gap BUN Creatinine Estim Creat Clear Calc Estimated GFR POC Glucose 187 H 186 H Random Glucose Calcium Total Bilirubin AST ALT Alkaline Phosphatase Ammonia Total Protein Albumin Valproic Acid 88.7 12/23/23 12/23/23 12/23/23 08:04 08:12 12:50 Sodium 138 Potassium 4.5 Chloride 102 Carbon Dioxide 23 Anion Gap 18 BUN 15 Creatinine 0.71 Estim Creat Clear Calc TNP Estimated GFR > 60 POC Glucose 201 H Random Glucose 209 H Calcium 9.2 Total Bilirubin 0.4 AST 18 ALT 20 Alkaline Phosphatase 54 Ammonia 37 Total Protein 6.6 Albumin 3.3 L Valproic Acid 12/23/23 13:12 Sodium Potassium Chloride Carbon Dioxide Anion Gap BUN Creatinine Estim Creat Clear Calc Estimated GFR POC Glucose 304 H Random Glucose Calcium Total Bilirubin AST ALT Alkaline Phosphatase Ammonia Total Protein Albumin Valproic Acid Medications Medications Current Medications Acetaminophen (Acetaminophen 325 Mg Tablet) 650 mg PO Q6H PRN PRN Reason: Headache/Pain Mild Scale (1-3) Al Hydroxide/Mg Hydroxide (Magnesium Hydrox/Alum Hydrox 30 Ml Oral.Susp) 30 ml PO Q6H PRN PRN Reason: Heartburn/Nausea Last Admin: 12/20/23 09:28 Dose: 30 ml Divalproex Sodium (Divalproex Sodium Er 250 Mg Tab.Er.24h) 1,250 mg PO BID [facility] Last Admin: 12/23/23 09:13 Dose: 1,250 mg Fluoxetine HCl (Fluoxetine Hcl 20 Mg Capsule) 80 mg PO DAILY [facility] Last Admin: 12/23/23 09:14 Dose: 80 mg Fluticasone Propionate (Fluticasone Propionate Nasal 16 Gm [place]) 1 spray NOSTRIL-B DAILY [facility] Last Admin: 12/23/23 09:33 Dose: 1 spray Gabapentin (Gabapentin 400 Mg Capsule) 400 mg PO QID [facility] Last Admin: 12/23/23 13:27 Dose: 400 mg Glipizide (Glipizide 10 Mg Tablet) 10 mg PO DAILY [facility] Last Admin: 12/23/23 09:12 Dose: 10 mg Glucose (Glucose Gel 15 Gm Gel..Gram.) 15 gm PO Q15M PRN; Protocol PRN Reason: per Hypoglycemia Standing Ord. Hydroxyzine HCl (Hydroxyzine Hcl 50 Mg Tablet) 50 mg PO BID PRN PRN Reason: Anxiety Hydroxyzine HCl (Hydroxyzine Hcl 25 Mg Tablet) 25 mg PO DAILY PRN PRN Reason: Anxiety Insulin Human Lispro (Insulin Lispro 100 Unit/Ml 3 Ml Vial) 0 unit SUBCUT QIDACHS [facility]; Protocol Last Admin: 12/23/23 13:26 Dose: 8 unit Levothyroxine Sodium (Levothyroxine Sodium 75 Mcg Tablet) 75 mcg PO DAILY@0600 [facility] Last Admin: 12/23/23 06:04 Dose: 75 mcg Lisinopril (Lisinopril 2.5 Mg Tablet) 2.5 mg PO DAILY [facility]; Protocol Last Admin: 12/23/23 09:13 Dose: 2.5 mg Loperamide HCl (Loperamide Hcl 2 Mg Capsule) 2 mg PO Q6H PRN PRN Reason: Diarrhea Last Admin: 12/20/23 23:10 Dose: 2 mg Lorazepam (Lorazepam 0.5 Mg Tablet) 0.5 mg PO DAILY PRN PRN Reason: Anxiety Last Admin: 12/20/23 13:09 Dose: 0.5 mg Lurasidone HCl (Lurasidone Hcl 80 Mg Tablet) 80 mg PO DAILY [facility] Last Admin: 12/23/23 09:12 Dose: 80 mg Magnesium Hydroxide (Milk Of Magnesia 30 Ml Oral.Susp) 30 ml PO DAILY PRN PRN Reason: Constipation Metformin HCl (Metformin Hcl Er 500 Mg Tab.Er.24h) 1,000 mg PO DAILY [facility] Last Admin: 12/23/23 09:14 Dose: 1,000 mg Non-Formulary Medication (Seasonale) 0 mg PO DAILY [facility] Omeprazole (Omeprazole 40 Mg Capsule.Dr) 40 mg PO DAILY@0630 [facility] Last Admin: 12/23/23 06:04 Dose: 40 mg Pravastatin Sodium (Pravastatin Sodium 20 Mg Tablet) 20 mg PO BEDTIME [facility] Last Admin: 12/22/23 20:06 Dose: 20 mg Sodium Bicarbonate (Sodium Bicarbonate 650 Mg Tablet) 1,300 mg PO TID [facility] Last Admin: 12/23/23 16:05 Dose: 1,300 mg Sucralfate (Sucralfate 1 Gm Tablet) 1 gm PO QID [facility] Last Admin: 12/23/23 13:27 Dose: 1 gm Trazodone HCl (Trazodone Hcl 50 Mg Tablet) 50 mg PO BEDTIME MRX1 PRN PRN Reason: Insomnia Last Admin: 12/22/23 20:06 Dose: 50 mg Triamcinolone Acetonide (Triamcinolone Acet 0.1 % Cream 15 Gm Tube) 1 appl TOPICAL BID [facility]; Protocol Last Admin: 12/23/23 09:32 Dose: 1 appl Allergies Allergies Allergy/AdvReac Type Severity Reaction Status Date / Time Cephalosporins Allergy Unknown Verified 12/19/23 23:46 sulfamethoxazole Allergy Rash Verified 12/19/23 23:46 [From Bactrim] trimethoprim Allergy Unknown Verified 12/19/23 23:46 haloperidol AdvReac Agitated Verified 12/19/23 23:46 Assessment & Plan Assessment & Plan (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: Status: Acute Code(s): F06.4 - Anxiety disorder due to known physiological condition (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: Status: Acute Code(s): F06.30 - Mood disorder due to known physiological condition, unspecified; S06.9XAS - Unspecified intracranial injury with loss of consciousness status unknown, sequela Plan liana to m5 on cv 15 min checks continue home medications obtain guardian ship Paperwork contact guardian and collect collateral info discharge planning 12/20 continue tx plan 12/22 alliance building continue current plan of care Reason for continued inpatient stay Substantial Risk for: rapid decompensation Time Spent With Patient Time: Total time managing care of this patient today ____ minutes.
[2023-12-23] MEDS: Magnesium Hydrox/Alum Hydrox 30 ML ORAL.SUSP PO (17:22)
[2023-12-23 18:00] LABS: Glucose, Whole Blood 190 mg/dL (60-115)
[2023-12-23 21:00] VITALS: BP 148/63; PULSE 107; RESP 14; TEMP 36.3; O2SAT 97
[2023-12-23 21:44] LABS: Glucose, Whole Blood 220 mg/dL (60-115)
[2023-12-23] MEDS: Pravastatin Sodium 20 MG TABLET PO (21:55)
[2023-12-24] MEDS: Levothyroxine Sodium 75 MCG TABLET PO (06:29)
[2023-12-24] MEDS: Omeprazole 40 MG CAPSULE.DR PO (07:22)
[2023-12-24 08:00] VITALS: BP 116/58; PULSE 100; TEMP 36.3; O2SAT 94
[2023-12-24 08:15] LABS: Glucose, Whole Blood 202 mg/dL (60-115)
[2023-12-24] MEDS: metFORMIN HCl ER 500 MG TAB.ER.24H 1000 MG PO (08:44)
[2023-12-24] MEDS: Sodium Bicarbonate 650 MG TABLET 1300 MG PO ×3 (08:44→21:08)
[2023-12-24] MEDS: Gabapentin 400 MG CAPSULE PO ×4 (08:44→21:07)
[2023-12-24] MEDS: Sucralfate 1 GM TABLET PO ×4 (08:44→21:08)
[2023-12-24] MEDS: glipiZIDE 10 MG TABLET PO (08:44)
[2023-12-24] MEDS: Divalproex Sodium ER 250 MG TAB.ER.24H 1250 MG PO ×2 (08:45→21:07)
[2023-12-24 09:03] VITALS: BP 116/58
[2023-12-24] MEDS: lisinopriL 2.5 MG TABLET PO (09:03)
[2023-12-24] MEDS: FLUoxetine HCl 20 MG CAPSULE 80 MG PO (09:04)
[2023-12-24] MEDS: Lurasidone HCl 80 MG TABLET PO (09:04)
[2023-12-24] MEDS: Insulin Lispro 100 UNIT/ML 3 ML VIAL SUBCUT ×4 (09:04→21:09)
[2023-12-24 12:04] LABS: Glucose, Whole Blood 280 mg/dL (60-115)
[2023-12-24] MEDS: Fluticasone Propionate Nasal 16 GM SPRAY 1 SPRAY NOSTRIL-B (12:32)
[2023-12-24] MEDS: Triamcinolone Acet 0.1 % Cream 15 GM TUBE 1 APPL TOPICAL ×2 (12:32→21:10)
--- NOTE | 2023-12-24 15:39 | HO.PSYCHPN ---
Subjective Subjective Date of Service: 12/24/23 Reason For Visit: UNSPECIFIED MOOD DISORDER Subjective Notes: Conditional Voluntary Healthcare Proxy: No Guardianship: Yes Medical Problems Affecting Mental Status: No Interim History: Responding to support from team. Care review with Suni Dickinson, guardian [phone]. Labs ordered for 12/25 Pt currently with no sx, responding to Valproate decrease Review of labs, hospitalist consult Medication Compliance: Yes Side effects from medications: No Attending Groups: No Review of Systems Acute medical concerns: No Medical Review of Systems: unchanged Review of Systems Review of Systems Denies abd pain today Yes all other systems are reviewed and are negative Mental Status Exam Mental Status Exam Patient Appearance: Appropriate Patient Orientation: Person, Place and Situation Level of Consciousness: Alert Patient Behavior: Talkative, Cooperative and Good Eye Contact Mood Description: Depressed Affect Description: Flat Patient Cognition Impaired: Yes Ability to Follow Directions: Good Speech Pattern: Spontaneous Speech Memory Description: Episodic Impaired Hallucinations: None Delusions: Not Present Thought Process: Rumination Thought Content: positive for [place] and positive for Circumstantial Judgement: Poor Diagnostics Vital Signs (24Hr): Vital Signs - 24 hr 12/23/23 21:00 12/24/23 08:00 12/24/23 09:03 Temperature 97.3 F 97.3 F Pulse Rate 107 H 100 Respiratory Rate 14 Blood Pressure 148/63 H 116/58 L 116/58 L Pulse Oximetry 97 94 Oxygen Delivery Method Room Air Room Air Labs 12/23/23 08:04 Labs: Laboratory Results - last 48 hr 12/22/23 12/22/23 12/23/23 17:53 20:00 08:03 Sodium Potassium Chloride Carbon Dioxide Anion Gap BUN Creatinine Estim Creat Clear Calc Estimated GFR POC Glucose 187 H 186 H Random Glucose Calcium Total Bilirubin AST ALT Alkaline Phosphatase Ammonia Total Protein Albumin Valproic Acid 88.7 12/23/23 12/23/23 12/23/23 08:04 08:12 12:50 Sodium 138 Potassium 4.5 Chloride 102 Carbon Dioxide 23 Anion Gap 18 BUN 15 Creatinine 0.71 Estim Creat Clear Calc TNP Estimated GFR > 60 POC Glucose 201 H Random Glucose 209 H Calcium 9.2 Total Bilirubin 0.4 AST 18 ALT 20 Alkaline Phosphatase 54 Ammonia 37 Total Protein 6.6 Albumin 3.3 L Valproic Acid 12/23/23 12/23/23 12/23/23 13:12 17:51 21:39 Sodium Potassium Chloride Carbon Dioxide Anion Gap BUN Creatinine Estim Creat Clear Calc Estimated GFR POC Glucose 304 H 190 H 220 H Random Glucose Calcium Total Bilirubin AST ALT Alkaline Phosphatase Ammonia Total Protein Albumin Valproic Acid 12/24/23 12/24/23 08:12 11:55 Sodium Potassium Chloride Carbon Dioxide Anion Gap BUN Creatinine Estim Creat Clear Calc Estimated GFR POC Glucose 202 H 280 H Random Glucose Calcium Total Bilirubin AST ALT Alkaline Phosphatase Ammonia Total Protein Albumin Valproic Acid Medications Medications Current Medications Acetaminophen (Acetaminophen 325 Mg Tablet) 650 mg PO Q6H PRN PRN Reason: Headache/Pain Mild Scale (1-3) Al Hydroxide/Mg Hydroxide (Magnesium Hydrox/Alum Hydrox 30 Ml Oral.Susp) 30 ml PO Q6H PRN PRN Reason: Heartburn/Nausea Last Admin: 12/23/23 17:22 Dose: 30 ml Divalproex Sodium (Divalproex Sodium Er 250 Mg Tab.Er.24h) 1,250 mg PO BID [facility] Last Admin: 12/24/23 08:45 Dose: 1,250 mg Fluoxetine HCl (Fluoxetine Hcl 20 Mg Capsule) 80 mg PO DAILY [facility] Last Admin: 12/24/23 09:04 Dose: 80 mg Fluticasone Propionate (Fluticasone Propionate Nasal 16 Gm [place]) 1 spray NOSTRIL-B DAILY [facility] Last Admin: 12/24/23 12:32 Dose: 1 spray Gabapentin (Gabapentin 400 Mg Capsule) 400 mg PO QID [facility] Last Admin: 12/24/23 12:32 Dose: 400 mg Glipizide (Glipizide 10 Mg Tablet) 10 mg PO DAILY [facility] Last Admin: 12/24/23 08:44 Dose: 10 mg Glucose (Glucose Gel 15 Gm Gel..Gram.) 15 gm PO Q15M PRN; Protocol PRN Reason: per Hypoglycemia Standing Ord. Hydroxyzine HCl (Hydroxyzine Hcl 50 Mg Tablet) 50 mg PO BID PRN PRN Reason: Anxiety Hydroxyzine HCl (Hydroxyzine Hcl 25 Mg Tablet) 25 mg PO DAILY PRN PRN Reason: Anxiety Insulin Human Lispro (Insulin Lispro 100 Unit/Ml 3 Ml Vial) 0 unit SUBCUT QIDACHS [facility]; Protocol Last Admin: 12/24/23 12:32 Dose: 6 unit Levothyroxine Sodium (Levothyroxine Sodium 75 Mcg Tablet) 75 mcg PO DAILY@0600 [facility] Last Admin: 12/24/23 06:29 Dose: 75 mcg Lisinopril (Lisinopril 2.5 Mg Tablet) 2.5 mg PO DAILY [facility]; Protocol Last Admin: 12/24/23 09:03 Dose: 2.5 mg Loperamide HCl (Loperamide Hcl 2 Mg Capsule) 2 mg PO Q6H PRN PRN Reason: Diarrhea Last Admin: 12/20/23 23:10 Dose: 2 mg Lorazepam (Lorazepam 0.5 Mg Tablet) 0.5 mg PO DAILY PRN PRN Reason: Anxiety Last Admin: 12/20/23 13:09 Dose: 0.5 mg Lurasidone HCl (Lurasidone Hcl 80 Mg Tablet) 80 mg PO DAILY [facility] Last Admin: 12/24/23 09:04 Dose: 80 mg Magnesium Hydroxide (Milk Of Magnesia 30 Ml Oral.Susp) 30 ml PO DAILY PRN PRN Reason: Constipation Metformin HCl (Metformin Hcl Er 500 Mg Tab.Er.24h) 1,000 mg PO DAILY [facility] Last Admin: 12/24/23 08:44 Dose: 1,000 mg Non-Formulary Medication ([place]) 0 mg PO DAILY [facility] Omeprazole (Omeprazole 40 Mg Capsule.Dr) 40 mg PO DAILY@0630 [facility] Last Admin: 12/24/23 07:22 Dose: 40 mg Pravastatin Sodium (Pravastatin Sodium 20 Mg Tablet) 20 mg PO BEDTIME [facility] Last Admin: 12/23/23 21:55 Dose: 20 mg Sodium Bicarbonate (Sodium Bicarbonate 650 Mg Tablet) 1,300 mg PO TID [facility] Last Admin: 12/24/23 14:46 Dose: 1,300 mg Sucralfate (Sucralfate 1 Gm Tablet) 1 gm PO QID [facility] Last Admin: 12/24/23 12:32 Dose: 1 gm Trazodone HCl (Trazodone Hcl 50 Mg Tablet) 50 mg PO BEDTIME MRX1 PRN PRN Reason: Insomnia Last Admin: 12/22/23 20:06 Dose: 50 mg Triamcinolone Acetonide (Triamcinolone Acet 0.1 % Cream 15 Gm Tube) 1 appl TOPICAL BID [facility]; Protocol Last Admin: 12/24/23 12:32 Dose: 1 appl Allergies Allergies Allergy/AdvReac Type Severity Reaction Status Date / Time Cephalosporins Allergy Unknown Verified 12/19/23 23:46 sulfamethoxazole Allergy Rash Verified 12/19/23 23:46 [From Bactrim] trimethoprim Allergy Unknown Verified 12/19/23 23:46 haloperidol AdvReac Agitated Verified 12/19/23 23:46 Assessment & Plan Assessment & Plan (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: Status: Acute Code(s): F06.4 - Anxiety disorder due to known physiological condition (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: Status: Acute Code(s): F06.30 - Mood disorder due to known physiological condition, unspecified; S06.9XAS - Unspecified intracranial injury with loss of consciousness status unknown, sequela Plan liana to m5 on cv 15 min checks continue home medications obtain guardian ship Paperwork contact guardian and collect collateral info discharge planning 12/20 continue tx plan 12/22 alliance building continue current plan of care 12/23 Continue current plan of care Reason for continued inpatient stay Substantial Risk for: rapid decompensation and med/psych decompensation Time Spent With Patient Time: Total time managing care of this patient today ____ minutes.
[2023-12-24 17:11] LABS: Glucose, Whole Blood 215 mg/dL (60-115)
[2023-12-24 21:01] LABS: Glucose, Whole Blood 248 mg/dL (60-115)
[2023-12-24] MEDS: Pravastatin Sodium 20 MG TABLET PO (21:08)
[2023-12-25] MEDS: Levothyroxine Sodium 75 MCG TABLET PO (06:07)
[2023-12-25] MEDS: Omeprazole 40 MG CAPSULE.DR PO (06:07)
[2023-12-25 07:00] VITALS: BMI 27.5
[2023-12-25 08:00] VITALS: BP 155/81; PULSE 119; RESP 18; TEMP 35.9; O2SAT 96
[2023-12-25 08:36] VITALS: BP 155/81
[2023-12-25] MEDS: FLUoxetine HCl 20 MG CAPSULE 80 MG PO (08:36)
[2023-12-25] MEDS: Gabapentin 400 MG CAPSULE PO ×4 (08:36→21:34)
[2023-12-25] MEDS: lisinopriL 2.5 MG TABLET PO (08:36)
[2023-12-25] MEDS: metFORMIN HCl ER 500 MG TAB.ER.24H 1000 MG PO (08:36)
[2023-12-25] MEDS: Sodium Bicarbonate 650 MG TABLET 1300 MG PO ×3 (08:36→21:34)
[2023-12-25] MEDS: Sucralfate 1 GM TABLET PO ×4 (08:36→21:34)
[2023-12-25] MEDS: glipiZIDE 10 MG TABLET PO (08:36)
[2023-12-25] MEDS: Divalproex Sodium ER 250 MG TAB.ER.24H 1250 MG PO ×2 (08:36→21:34)
[2023-12-25] MEDS: Lurasidone HCl 80 MG TABLET PO (08:36)
[2023-12-25] MEDS: Fluticasone Propionate Nasal 16 GM SPRAY 1 SPRAY NOSTRIL-B (08:40)
[2023-12-25] MEDS: Triamcinolone Acet 0.1 % Cream 15 GM TUBE 1 APPL TOPICAL ×2 (08:40→21:39)
[2023-12-25 08:56] LABS: Glucose, Whole Blood 151 mg/dL (60-115)
[2023-12-25] MEDS: Insulin Lispro 100 UNIT/ML 3 ML VIAL SUBCUT ×4 (09:27→21:36)
[2023-12-25 12:38] LABS: Glucose, Whole Blood 193 mg/dL (60-115)
--- NOTE | 2023-12-25 15:38 | P.PNPSI_ITS ---
Subjective Subjective Date of Service: 12/25/23 Reason For Visit: UNSPECIFIED MOOD DISORDER Subjective Notes: Conditional Voluntary Healthcare Proxy: No Guardianship: Yes Medical Problems Affecting Mental Status: No Interim History: Pt showered with team assist. Mother, Avis visited and met with team Mother brought labs from [place], when seen there Calprotectin level was 200. By hx 03/03/23-09/17/21-70 08/19/20-01/24/20- Avis reports she sees increase in behaviors when pt has pain. They have difficulty seeing OP GI team when needed. Avis expressed concerns about pt being on a regular diet. She encouraged team to discuss with pt before changing this, however she reports pt eats many carbs thus BS elevates. Reviewed Depakote and levels- at home 1000 mg a.m. 1500 mg pm. Continues at 2500, divided 1250 bid. Reviewed concerns with pt's pain in her feet-has PT at home and exercises for ankle strength. Pain began when pt was at [facility] and her balance was off due to deconditioning. Avis reports 4-5 falls post IP at [facility]. Avis discussed how difficult it is to get the community to manage pts with chronic illnness- GI takes several days to respond if pt is in pain. Will reach out to [place] [facility] Dr. Valdez/Ivanna [phone]. At home, there are a few stressful situations which may have contributed to pt's distress. One of her care givers is moving to [place] for [id number] return then may move permanently. Pt by history lived with these people and her life is disrupted by this. Also, Avis had knee surgery in October which caused pt's schedule to be changed as well. By hx pt has had perceived medical overload per team Avis reports-there has been disageements with meds, appts, specialist appts. Pt has been asked to leave day programs so they have created their own program with care providers. With pain, depression and irritability increase and pt expresses feeling tired of the burden of managing developmental delay, medical issues and anxiety. Avis sees pt as less anxious and feels discharge should be sooner so she will not feel hopeless. Medication Compliance: Yes Side effects from medications: No Attending Groups: No Review of Systems Acute medical concerns: No Medical Review of Systems: unchanged Review of Systems Review of Systems Yes all other systems are reviewed and are negative Mental Status Exam Mental Status Exam Patient Appearance: Appropriate Patient Orientation: Person, Place and Situation Level of Consciousness: Alert Patient Behavior: Talkative, Cooperative and Good Eye Contact Mood Description: Depressed Affect Description: Flat Patient Cognition Impaired: Yes Ability to Follow Directions: Good Speech Pattern: Spontaneous Speech Memory Description: Episodic Impaired Hallucinations: None Delusions: Not Present Thought Process: Rumination Thought Content: positive for Orange and positive for Circumstantial Judgement: Poor Diagnostics Vital Signs (24Hr): Vital Signs - 24 hr 12/25/23 08:00 12/25/23 08:36 Temperature 96.7 F L Pulse Rate 119 H Respiratory Rate 18 Blood Pressure 155/81 H 155/81 H Pulse Oximetry 96 Oxygen Delivery Method Room Air BMI result Body Mass Index 27.5 Labs 12/23/23 08:04 Labs: Laboratory Results - last 48 hr 12/23/23 12/23/23 12/24/23 17:51 21:39 08:12 POC Glucose 190 H 220 H 202 H 12/24/23 12/24/23 12/24/23 11:55 17:03 20:52 POC Glucose 280 H 215 H 248 H 12/25/23 12/25/23 08:42 12:30 POC Glucose 151 H 193 H Medications Medications Current Medications Acetaminophen (Acetaminophen 325 Mg Tablet) 650 mg PO Q6H PRN PRN Reason: Headache/Pain Mild Scale (1-3) Al Hydroxide/Mg Hydroxide (Magnesium Hydrox/Alum Hydrox 30 Ml Oral.Susp) 30 ml PO Q6H PRN PRN Reason: Heartburn/Nausea Last Admin: 12/23/23 17:22 Dose: 30 ml Divalproex Sodium (Divalproex Sodium Er 250 Mg Tab.Er.24h) 1,250 mg PO BID [facility] Last Admin: 12/25/23 08:36 Dose: 1,250 mg Fluoxetine HCl (Fluoxetine Hcl 20 Mg Capsule) 80 mg PO DAILY [facility] Last Admin: 12/25/23 08:36 Dose: 80 mg Fluticasone Propionate (Fluticasone Propionate Nasal 16 Gm [place]) 1 spray NOSTRIL-B DAILY [facility] Last Admin: 12/25/23 08:40 Dose: 1 spray Gabapentin (Gabapentin 400 Mg Capsule) 400 mg PO QID [facility] Last Admin: 12/25/23 13:26 Dose: 400 mg Glipizide (Glipizide 10 Mg Tablet) 10 mg PO DAILY [facility] Last Admin: 12/25/23 08:36 Dose: 10 mg Glucose (Glucose Gel 15 Gm Gel..Gram.) 15 gm PO Q15M PRN; Protocol PRN Reason: per Hypoglycemia Standing Ord. Hydroxyzine HCl (Hydroxyzine Hcl 50 Mg Tablet) 50 mg PO BID PRN PRN Reason: Anxiety Hydroxyzine HCl (Hydroxyzine Hcl 25 Mg Tablet) 25 mg PO DAILY PRN PRN Reason: Anxiety Insulin Human Lispro (Insulin Lispro 100 Unit/Ml 3 Ml Vial) 0 unit SUBCUT QIDACHS [facility]; Protocol Last Admin: 12/25/23 12:48 Dose: 2 unit Levothyroxine Sodium (Levothyroxine Sodium 75 Mcg Tablet) 75 mcg PO DAILY@0600 [facility] Last Admin: 12/25/23 06:07 Dose: 75 mcg Lisinopril (Lisinopril 2.5 Mg Tablet) 2.5 mg PO DAILY [facility]; Protocol Last Admin: 12/25/23 08:36 Dose: 2.5 mg Loperamide HCl (Loperamide Hcl 2 Mg Capsule) 2 mg PO Q6H PRN PRN Reason: Diarrhea Last Admin: 12/20/23 23:10 Dose: 2 mg Lorazepam (Lorazepam 0.5 Mg Tablet) 0.5 mg PO DAILY PRN PRN Reason: Anxiety Last Admin: 12/20/23 13:09 Dose: 0.5 mg Lurasidone HCl (Lurasidone Hcl 80 Mg Tablet) 80 mg PO DAILY [facility] Last Admin: 12/25/23 08:36 Dose: 80 mg Magnesium Hydroxide (Milk Of Magnesia 30 Ml Oral.Susp) 30 ml PO DAILY PRN PRN Reason: Constipation Metformin HCl (Metformin Hcl Er 500 Mg Tab.Er.24h) 1,000 mg PO DAILY [facility] Last Admin: 12/25/23 08:36 Dose: 1,000 mg Non-Formulary Medication (Seasonale) 0 mg PO DAILY [facility] Omeprazole (Omeprazole 40 Mg Capsule.Dr) 40 mg PO DAILY@0630 [facility] Last Admin: 12/25/23 06:07 Dose: 40 mg Pravastatin Sodium (Pravastatin Sodium 20 Mg Tablet) 20 mg PO BEDTIME [facility] Last Admin: 12/24/23 21:08 Dose: 20 mg Sodium Bicarbonate (Sodium Bicarbonate 650 Mg Tablet) 1,300 mg PO TID [facility] Last Admin: 12/25/23 08:36 Dose: 1,300 mg Sucralfate (Sucralfate 1 Gm Tablet) 1 gm PO QID [facility] Last Admin: 12/25/23 13:26 Dose: 1 gm Trazodone HCl (Trazodone Hcl 50 Mg Tablet) 50 mg PO BEDTIME MRX1 PRN PRN Reason: Insomnia Last Admin: 12/22/23 20:06 Dose: 50 mg Triamcinolone Acetonide (Triamcinolone Acet 0.1 % Cream 15 Gm Tube) 1 appl TOPICAL BID [facility]; Protocol Last Admin: 12/25/23 08:40 Dose: 1 appl Allergies Allergies Allergy/AdvReac Type Severity Reaction Status Date / Time Cephalosporins Allergy Unknown Verified 12/19/23 23:46 sulfamethoxazole Allergy Rash Verified 12/19/23 23:46 [From Bactrim] trimethoprim Allergy Unknown Verified 12/19/23 23:46 haloperidol AdvReac Agitated Verified 12/19/23 23:46 Assessment & Plan Assessment & Plan (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: Status: Acute Code(s): F06.4 - Anxiety disorder due to known physiological condition (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: Status: Acute Code(s): F06.30 - Mood disorder due to known physiological condition, unspecified; S06.9XAS - Unspecified intracranial injury with loss of consciousness status unknown, sequela Plan liana to m5 on cv 15 min checks continue home medications obtain guardian ship Paperwork contact guardian and collect collateral info discharge planning 12/20 continue tx plan 12/22 alliance building continue current plan of care 12/24 continue tx Reason for continued inpatient stay Substantial Risk for: rapid decompensation Time Spent With Patient Time: Total time managing care of this patient today ____ minutes.
[2023-12-25 17:26] LABS: Glucose, Whole Blood 187 mg/dL (60-115)
[2023-12-25 21:13] LABS: Glucose, Whole Blood 215 mg/dL (60-115)
[2023-12-25] MEDS: Pravastatin Sodium 20 MG TABLET PO (21:34)
[2023-12-26] MEDS: Magnesium Hydrox/Alum Hydrox 30 ML ORAL.SUSP PO (00:49)
[2023-12-26] MEDS: Levothyroxine Sodium 75 MCG TABLET PO (07:16)
[2023-12-26 08:29] LABS: Glucose, Whole Blood 157 mg/dL (60-115)
[2023-12-26 09:39] VITALS: BP 123/67; PULSE 102; RESP 16; TEMP 36.1; O2SAT 97
[2023-12-26] MEDS: Sucralfate 1 GM TABLET PO ×4 (09:44→20:29)
[2023-12-26] MEDS: Gabapentin 400 MG CAPSULE PO ×4 (09:44→20:29)
[2023-12-26] MEDS: metFORMIN HCl ER 500 MG TAB.ER.24H 1000 MG PO (09:44)
[2023-12-26] MEDS: Sodium Bicarbonate 650 MG TABLET 1300 MG PO ×3 (09:45→20:29)
[2023-12-26] MEDS: Lurasidone HCl 80 MG TABLET PO (09:45)
[2023-12-26] MEDS: Omeprazole 40 MG CAPSULE.DR PO (09:45)
[2023-12-26] MEDS: FLUoxetine HCl 20 MG CAPSULE 80 MG PO (09:46)
[2023-12-26] MEDS: glipiZIDE 10 MG TABLET PO (09:46)
[2023-12-26] MEDS: Insulin Lispro 100 UNIT/ML 3 ML VIAL SUBCUT ×3 (09:47→18:09)
[2023-12-26] MEDS: lisinopriL 2.5 MG TABLET PO (09:47)
[2023-12-26] MEDS: Divalproex Sodium ER 250 MG TAB.ER.24H 1250 MG PO ×2 (09:47→20:29)
[2023-12-26 09:51] LABS: MANUAL DIFF FLAG NO
[2023-12-26] MEDS: Triamcinolone Acet 0.1 % Cream 15 GM TUBE 1 APPL TOPICAL (09:51)
[2023-12-26] MEDS: Fluticasone Propionate Nasal 16 GM SPRAY 1 SPRAY NOSTRIL-B (09:52)
[2023-12-26 10:02] LABS: Basophils Percent Auto 0.7 % (0-2); Eosinophils Absolute Auto 0.2 X10*3/uL (0.0-0.4); Eosinophils Percent Auto 4.4 % (0-4); Hematocrit 43.8 % (37.0-47.0); Hemoglobin 15.1 g/dl (12.0-16.0); Imm Gran Abs Auto 0.04 X10*3/uL (0.00-0.03); Imm Gran Pct Auto 0.7 % (0.0-0.4); Lymphocytes Absolute Auto 2.5 X10*3/uL (1.2-4.9); Lymphocytes Percent Auto 45.4 % (20-40); Mean Corpuscular HGB Conc 34.5 g/dl (31.0-35.0); Mean Corpuscular Hemoglobin 32.1 pg (27.0-33.0); Monocytes Absolute Auto 0.5 X10*3/uL (0.1-1.2); Monocytes Percent Auto 9.1 % (2-11); Neutrophils Absolute Auto 2.2 x10*3/uL (2.0-8.3); Neutrophils Percent Auto 39.7 % (45-73); Red Blood Count 4.71 X10*6/uL (4.20-5.50); Red Cell Distribution Width 13.8 % (11.0-16.0); White Blood Count 5.5 X10*3/uL (4.8-10.8)
[2023-12-26 10:13] LABS: Valproate 69.9 mcg/mL (50.0-100.0)
--- NOTE | 2023-12-26 10:33 | P.PNPSI_ITS ---
Subjective Subjective Date of Service: 12/26/23 Reason For Visit: UNSPECIFIED MOOD DISORDER Subjective Notes: Conditional Voluntary Guardianship: Yes Interim History: Pt reports feeling well today. She is awake, in the common area, having a snack- interactive, spontaneous smile-encouraged group, I might . Discussed elevated blood sugar levels and asked if she would consider returning to a diabetic diet, she agreed. Discussed possible discharge for next week, I think I am ready. But it is good here. Care/Diagnostics review with guardian, Suni Dickinson [phone] who asks that we not plan discharge. She is arranging a team meeting with OP care providers to develop a crisis plan and she believes mother cannot handle pt's behaviors at home and she will need a crisis plan developed to assist pt. Currently mother's plan is to call 911 if pt has behaviors and her care providers are going out of town next week. As a result she will be without resources. Suni will arrange a zoom meeting that our team will attend as well. Medication Compliance: Yes Side effects from medications: No Attending Groups: No Review of Systems Acute medical concerns: No Medical Review of Systems: unchanged Review of Systems Review of Systems Yes all other systems are reviewed and are negative (denies today) Mental Status Exam Mental Status Exam Patient Appearance: Appropriate Patient Orientation: Person, Place and Situation Level of Consciousness: Alert Patient Behavior: Talkative, Cooperative and Good Eye Contact Mood Description: Depressed Affect Description: Flat Patient Cognition Impaired: Yes Ability to Follow Directions: Good Speech Pattern: Spontaneous Speech Memory Description: Episodic Impaired Hallucinations: None Delusions: Not Present Thought Process: Rumination Thought Content: positive for [place] and positive for Circumstantial Judgement: Poor Diagnostics Vital Signs (24Hr): Vital Signs - 24 hr 12/26/23 09:39 Temperature 96.9 F Pulse Rate 102 H Respiratory Rate 16 Blood Pressure 123/67 Pulse Oximetry 97 Oxygen Delivery Method Room Air BMI result Body Mass Index 27.5 Labs 12/26/23 09:24 12/26/23 09:24 Labs: Laboratory Results - last 48 hr 12/24/23 12/24/23 12/24/23 11:55 17:03 20:52 WBC RBC Hgb Hct MCV MCH MCHC RDW Plt Count MPV Immature Gran % (Auto) Neut % (Auto) Lymph % (Auto) [place] % (Auto) Eos % (Auto) Baso % (Auto) Lymph # (Auto) [place] # (Auto) Eos # (Auto) Baso # (Auto) Abs Immat Gran (auto) Absolute Neuts (auto) Absolute Nucleated RBC Nucleated RBC % (auto) POC Glucose 280 H 215 H 248 H Valproic Acid 12/25/23 12/25/23 12/25/23 08:42 12:30 17:17 WBC RBC Hgb Hct MCV MCH MCHC RDW Plt Count MPV Immature Gran % (Auto) Neut % (Auto) Lymph % (Auto) [place] % (Auto) Eos % (Auto) Baso % (Auto) Lymph # (Auto) [place] # (Auto) Eos # (Auto) Baso # (Auto) Abs Immat Gran (auto) Absolute Neuts (auto) Absolute Nucleated RBC Nucleated RBC % (auto) POC Glucose 151 H 193 H 187 H Valproic Acid 12/25/23 12/26/23 12/26/23 21:10 08:25 09:24 WBC 5.5 RBC 4.71 Hgb 15.1 Hct 43.8 MCV 93.0 MCH 32.1 MCHC 34.5 RDW 13.8 Plt Count TNP MPV TNP Immature Gran % (Auto) 0.7 H Neut % (Auto) 39.7 L Lymph % (Auto) 45.4 H [place] % (Auto) 9.1 Eos % (Auto) 4.4 H Baso % (Auto) 0.7 Lymph # (Auto) 2.5 [place] # (Auto) 0.5 Eos # (Auto) 0.2 Baso # (Auto) 0.0 Abs Immat Gran (auto) 0.04 H Absolute Neuts (auto) 2.2 Absolute Nucleated RBC 0.000 Nucleated RBC % (auto) 0.0 POC Glucose 215 H 157 H Valproic Acid 69.9 Medications Medications Current Medications Acetaminophen (Acetaminophen 325 Mg Tablet) 650 mg PO Q6H PRN PRN Reason: Headache/Pain Mild Scale (1-3) Al Hydroxide/Mg Hydroxide (Magnesium Hydrox/Alum Hydrox 30 Ml Oral.Susp) 30 ml PO Q6H PRN PRN Reason: Heartburn/Nausea Last Admin: 12/26/23 00:49 Dose: 30 ml Divalproex Sodium (Divalproex Sodium Er 250 Mg Tab.Er.24h) 1,250 mg PO BID [facility] Last Admin: 12/26/23 09:47 Dose: 1,250 mg Fluoxetine HCl (Fluoxetine Hcl 20 Mg Capsule) 80 mg PO DAILY [facility] Last Admin: 12/26/23 09:46 Dose: 80 mg Fluticasone Propionate (Fluticasone Propionate Nasal 16 Gm [place]) 1 spray NOSTRIL-B DAILY [facility] Last Admin: 12/26/23 09:52 Dose: 1 spray Gabapentin (Gabapentin 400 Mg Capsule) 400 mg PO QID [facility] Last Admin: 12/26/23 09:44 Dose: 400 mg Glipizide (Glipizide 10 Mg Tablet) 10 mg PO DAILY [facility] Last Admin: 12/26/23 09:46 Dose: 10 mg Glucose (Glucose Gel 15 Gm Gel..Gram.) 15 gm PO Q15M PRN; Protocol PRN Reason: per Hypoglycemia Standing Ord. Hydroxyzine HCl (Hydroxyzine Hcl 50 Mg Tablet) 50 mg PO BID PRN PRN Reason: Anxiety Hydroxyzine HCl (Hydroxyzine Hcl 25 Mg Tablet) 25 mg PO DAILY PRN PRN Reason: Anxiety Insulin Human Lispro (Insulin Lispro 100 Unit/Ml 3 Ml Vial) 0 unit SUBCUT QIDACHS [facility]; Protocol Last Admin: 12/26/23 09:47 Dose: 2 unit Levothyroxine Sodium (Levothyroxine Sodium 75 Mcg Tablet) 75 mcg PO DAILY@0600 [facility] Last Admin: 12/26/23 07:16 Dose: 75 mcg Lisinopril (Lisinopril 2.5 Mg Tablet) 2.5 mg PO DAILY [facility]; Protocol Last Admin: 12/26/23 09:47 Dose: 2.5 mg Loperamide HCl (Loperamide Hcl 2 Mg Capsule) 2 mg PO Q6H PRN PRN Reason: Diarrhea Last Admin: 12/20/23 23:10 Dose: 2 mg Lorazepam (Lorazepam 0.5 Mg Tablet) 0.5 mg PO DAILY PRN PRN Reason: Anxiety Last Admin: 12/20/23 13:09 Dose: 0.5 mg Lurasidone HCl (Lurasidone Hcl 80 Mg Tablet) 80 mg PO DAILY [facility] Last Admin: 12/26/23 09:45 Dose: 80 mg Magnesium Hydroxide (Milk Of Magnesia 30 Ml Oral.Susp) 30 ml PO DAILY PRN PRN Reason: Constipation Metformin HCl (Metformin Hcl Er 500 Mg Tab.Er.24h) 1,000 mg PO DAILY [facility] Last Admin: 12/26/23 09:44 Dose: 1,000 mg Non-Formulary Medication (Seasonale) 0 mg PO DAILY [facility] Omeprazole (Omeprazole 40 Mg Capsule.Dr) 40 mg PO DAILY@30 [facility] Last Admin: 12/26/23 09:45 Dose: 40 mg Pravastatin Sodium (Pravastatin Sodium 20 Mg Tablet) 20 mg PO BEDTIME [facility] Last Admin: 12/25/23 21:34 Dose: 20 mg Sodium Bicarbonate (Sodium Bicarbonate 650 Mg Tablet) 1,300 mg PO TID [facility] Last Admin: 12/26/23 09:45 Dose: 1,300 mg Sucralfate (Sucralfate 1 Gm Tablet) 1 gm PO QID [facility] Last Admin: 12/26/23 09:44 Dose: 1 gm Trazodone HCl (Trazodone Hcl 50 Mg Tablet) 50 mg PO BEDTIME MRX1 PRN PRN Reason: Insomnia Last Admin: 12/22/23 20:06 Dose: 50 mg Triamcinolone Acetonide (Triamcinolone Acet 0.1 % Cream 15 Gm Tube) 1 appl TOPICAL BID [facility]; Protocol Last Admin: 12/26/23 09:51 Dose: 1 appl Allergies Allergies Allergy/AdvReac Type Severity Reaction Status Date / Time Cephalosporins Allergy Unknown Verified 12/19/23 23:46 sulfamethoxazole Allergy Rash Verified 12/19/23 23:46 [From Bactrim] trimethoprim Allergy Unknown Verified 12/19/23 23:46 haloperidol AdvReac Agitated Verified 12/19/23 23:46 Assessment & Plan Assessment & Plan (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: Status: Acute Code(s): F06.4 - Anxiety disorder due to known physiological condition (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: Status: Acute Code(s): F06.30 - Mood disorder due to known physiological condition, unspecified; S06.9XAS - Unspecified intracranial injury with loss of consciousness status unknown, sequela Plan liana to m5 on cv 15 min checks continue home medications obtain guardian ship Paperwork contact guardian and collect collateral info discharge planning 12/20 continue tx plan 12/22 alliance building continue current plan of care 12/24 continue tx 12/24 change diet to diabetic continue tx Reason for continued inpatient stay Substantial Risk for: rapid decompensation Time Spent With Patient Time: Total time managing care of this patient today ____ minutes.
[2023-12-26 10:40] LABS: Alanine Aminotransferase 21 U/L (0-31); Albumin Level 3.7 g/dL (3.5-5.0); Alkaline Phosphatase 54 U/L (39-117); Anion Gap 21 (12-20); Aspartate Amino Transferase 34 U/L (5-31); Bilirubin Total 0.3 mg/dL (0.0-1.0); Blood Urea Nitrogen 21 mg/dL (9-16); Calcium 9.7 mg/dL (8.4-10.2); Carbon Dioxide 21 mmol/L (22-29); Chloride 99 mmol/L (96-108); Creatinine Clr Calc Pharmacy 62.9; Estimated Glomerular Filt Rate > 60; Glucose Random 262 mg/dL (60-115); Potassium 5.1 mmol/L (3.3-5.1); Sodium 136 mmol/L (135-145); Total Protein 7.8 g/dL (6.5-8.0)
[2023-12-26 12:28] LABS: Glucose, Whole Blood 324 mg/dL (60-115)
[2023-12-26 17:17] LABS: Glucose, Whole Blood 200 mg/dL (60-115)
[2023-12-26 20:13] LABS: Glucose, Whole Blood 106 mg/dL (60-115)
[2023-12-26 20:17] VITALS: BP 118/68; PULSE 110; RESP 18; TEMP 36.1; O2SAT 96
[2023-12-26] MEDS: Pravastatin Sodium 20 MG TABLET PO (20:29)
[2023-12-27] MEDS: Acetaminophen 325 MG TABLET 650 MG PO (01:28)
[2023-12-27] MEDS: Magnesium Hydrox/Alum Hydrox 30 ML ORAL.SUSP PO (01:28)
[2023-12-27] MEDS: hydrOXYzine HCL 50 MG TABLET PO ×2 (05:52→21:16)
[2023-12-27] MEDS: Levothyroxine Sodium 75 MCG TABLET PO (05:52)
[2023-12-27] MEDS: Omeprazole 40 MG CAPSULE.DR PO (05:52)
[2023-12-27 08:00] VITALS: BP 152/83; PULSE 100; TEMP 36.3; O2SAT 99
[2023-12-27 09:07] LABS: Glucose, Whole Blood 149 mg/dL (60-115)
[2023-12-27] MEDS: Divalproex Sodium ER 250 MG TAB.ER.24H 1250 MG PO ×2 (09:22→21:16)
[2023-12-27] MEDS: Lurasidone HCl 80 MG TABLET PO (09:23)
[2023-12-27] MEDS: Gabapentin 400 MG CAPSULE PO ×4 (09:23→21:16)
[2023-12-27] MEDS: glipiZIDE 10 MG TABLET PO (09:23)
[2023-12-27] MEDS: Sucralfate 1 GM TABLET PO ×4 (09:23→21:16)
[2023-12-27] MEDS: Sodium Bicarbonate 650 MG TABLET 1300 MG PO ×3 (09:23→21:15)
[2023-12-27 09:24] VITALS: BP 152/83
[2023-12-27] MEDS: metFORMIN HCl ER 500 MG TAB.ER.24H 1000 MG PO (09:24)
[2023-12-27] MEDS: FLUoxetine HCl 20 MG CAPSULE 80 MG PO (09:24)
[2023-12-27] MEDS: lisinopriL 2.5 MG TABLET PO (09:24)
--- NOTE | 2023-12-27 10:01 | P.PNPSI_ITS ---
Subjective Subjective Date of Service: 12/27/23 Reason For Visit: UNSPECIFIED MOOD DISORDER Interim History: Pt reports feeling well today. She reports her mood has improved. She says her diarrhea has improved and is content with that. Denies SI/HI/AVH. Review of Systems Review of Systems Denies abd pain today Yes all other systems are reviewed and are negative (denies today) Mental Status Exam Mental Status Exam Patient Appearance: Appropriate Patient Orientation: Person, Place and Situation Level of Consciousness: Alert Patient Behavior: Talkative, Cooperative and Good Eye Contact Mood Description: Depressed Affect Description: Flat Patient Cognition Impaired: Yes Ability to Follow Directions: Good Speech Pattern: Spontaneous Speech Memory Description: Episodic Impaired Diagnostics Vital Signs (24Hr): Vital Signs - 24 hr 12/26/23 20:17 12/27/23 08:00 12/27/23 09:24 Temperature 97 F 97.4 F Pulse Rate 110 H 100 Respiratory Rate 18 Blood Pressure 118/68 152/83 H 152/83 H Pulse Oximetry 96 99 Oxygen Delivery Method Room Air Room Air BMI result Body Mass Index 27.5 Labs 12/26/23 09:24 12/26/23 09:24 Labs: Laboratory Results - last 48 hr 12/25/23 12/25/23 12/25/23 12:30 17:17 21:10 WBC RBC Hgb Hct MCV MCH MCHC RDW Plt Count MPV Immature Gran % (Auto) Neut % (Auto) Lymph % (Auto) [place] % (Auto) Eos % (Auto) Baso % (Auto) Lymph # (Auto) [place] # (Auto) Eos # (Auto) Baso # (Auto) Abs Immat Gran (auto) Absolute Neuts (auto) Absolute Nucleated RBC Nucleated RBC % (auto) Sodium Potassium Chloride Carbon Dioxide Anion Gap BUN Creatinine Estim Creat Clear Calc Estimated GFR POC Glucose 193 H 187 H 215 H Random Glucose Calcium Total Bilirubin AST ALT Alkaline Phosphatase Total Protein Albumin Valproic Acid 12/26/23 12/26/23 12/26/23 08:25 09:24 12:24 WBC 5.5 RBC 4.71 Hgb 15.1 Hct 43.8 MCV 93.0 MCH 32.1 MCHC 34.5 RDW 13.8 Plt Count TNP MPV TNP Immature Gran % (Auto) 0.7 H Neut % (Auto) 39.7 L Lymph % (Auto) 45.4 H [place] % (Auto) 9.1 Eos % (Auto) 4.4 H Baso % (Auto) 0.7 Lymph # (Auto) 2.5 [place] # (Auto) 0.5 Eos # (Auto) 0.2 Baso # (Auto) 0.0 Abs Immat Gran (auto) 0.04 H Absolute Neuts (auto) 2.2 Absolute Nucleated RBC 0.000 Nucleated RBC % (auto) 0.0 Sodium 136 Potassium 5.1 Chloride 99 Carbon Dioxide 21 L Anion Gap 21 H BUN 21 H Creatinine 0.98 Estim Creat Clear Calc 62.9 Estimated GFR > 60 POC Glucose 157 H 324 H Random Glucose 262 H Calcium 9.7 Total Bilirubin 0.3 AST 34 H ALT 21 Alkaline Phosphatase 54 Total Protein 7.8 Albumin 3.7 Valproic Acid 69.9 12/26/23 12/26/23 12/27/23 17:11 20:01 09:04 WBC RBC Hgb Hct MCV MCH MCHC RDW Plt Count MPV Immature Gran % (Auto) Neut % (Auto) Lymph % (Auto) [place] % (Auto) Eos % (Auto) Baso % (Auto) Lymph # (Auto) [place] # (Auto) Eos # (Auto) Baso # (Auto) Abs Immat Gran (auto) Absolute Neuts (auto) Absolute Nucleated RBC Nucleated RBC % (auto) Sodium Potassium Chloride Carbon Dioxide Anion Gap BUN Creatinine Estim Creat Clear Calc Estimated GFR POC Glucose 200 H 106 149 H Random Glucose Calcium Total Bilirubin AST ALT Alkaline Phosphatase Total Protein Albumin Valproic Acid Medications Medications Current Medications Acetaminophen (Acetaminophen 325 Mg Tablet) 650 mg PO Q6H PRN PRN Reason: Headache/Pain Mild Scale (1-3) Last Admin: 12/27/23 01:28 Dose: 650 mg Al Hydroxide/Mg Hydroxide (Magnesium Hydrox/Alum Hydrox 30 Ml Oral.Susp) 30 ml PO Q6H PRN PRN Reason: Heartburn/Nausea Last Admin: 12/27/23 01:28 Dose: 30 ml Divalproex Sodium (Divalproex Sodium Er 250 Mg Tab.Er.24h) 1,250 mg PO BID [facility] Last Admin: 12/27/23 09:22 Dose: 1,250 mg Fluoxetine HCl (Fluoxetine Hcl 20 Mg Capsule) 80 mg PO DAILY [facility] Last Admin: 12/27/23 09:24 Dose: 80 mg Fluticasone Propionate (Fluticasone Propionate Nasal 16 Gm [place]) 1 spray NOSTRIL-B DAILY [facility] Last Admin: 12/26/23 09:52 Dose: 1 spray Gabapentin (Gabapentin 400 Mg Capsule) 400 mg PO QID [facility] Last Admin: 12/27/23 09:23 Dose: 400 mg Glipizide (Glipizide 10 Mg Tablet) 10 mg PO DAILY [facility] Last Admin: 12/27/23 09:23 Dose: 10 mg Glucose (Glucose Gel 15 Gm Gel..Gram.) 15 gm PO Q15M PRN; Protocol PRN Reason: per Hypoglycemia Standing Ord. Hydroxyzine HCl (Hydroxyzine Hcl 50 Mg Tablet) 50 mg PO BID PRN PRN Reason: Anxiety Last Admin: 12/27/23 05:52 Dose: 50 mg Hydroxyzine HCl (Hydroxyzine Hcl 25 Mg Tablet) 25 mg PO DAILY PRN PRN Reason: Anxiety Insulin Human Lispro (Insulin Lispro 100 Unit/Ml 3 Ml Vial) 0 unit SUBCUT QIDACHS [facility]; Protocol Last Admin: 12/27/23 09:15 Dose: Not Given Levothyroxine Sodium (Levothyroxine Sodium 75 Mcg Tablet) 75 mcg PO DAILY@0600 [facility] Last Admin: 12/27/23 05:52 Dose: 75 mcg Lisinopril (Lisinopril 2.5 Mg Tablet) 2.5 mg PO DAILY [facility]; Protocol Last Admin: 12/27/23 09:24 Dose: 2.5 mg Loperamide HCl (Loperamide Hcl 2 Mg Capsule) 2 mg PO Q6H PRN PRN Reason: Diarrhea Last Admin: 12/20/23 23:10 Dose: 2 mg Lorazepam (Lorazepam 0.5 Mg Tablet) 0.5 mg PO DAILY PRN PRN Reason: Anxiety Last Admin: 12/20/23 13:09 Dose: 0.5 mg Lurasidone HCl (Lurasidone Hcl 80 Mg Tablet) 80 mg PO DAILY [facility] Last Admin: 12/27/23 09:23 Dose: 80 mg Magnesium Hydroxide (Milk Of Magnesia 30 Ml Oral.Susp) 30 ml PO DAILY PRN PRN Reason: Constipation Metformin HCl (Metformin Hcl Er 500 Mg Tab.Er.24h) 1,000 mg PO DAILY [facility] Last Admin: 12/27/23 09:24 Dose: 1,000 mg Non-Formulary Medication (Seasonale) 0 mg PO DAILY [facility] Omeprazole (Omeprazole 40 Mg Capsule.Dr) 40 mg PO DAILY@0630 [facility] Last Admin: 12/27/23 05:52 Dose: 40 mg Pravastatin Sodium (Pravastatin Sodium 20 Mg Tablet) 20 mg PO BEDTIME [facility] Last Admin: 12/26/23 20:29 Dose: 20 mg Sodium Bicarbonate (Sodium Bicarbonate 650 Mg Tablet) 1,300 mg PO TID [facility] Last Admin: 12/27/23 09:23 Dose: 1,300 mg Sucralfate (Sucralfate 1 Gm Tablet) 1 gm PO QID [facility] Last Admin: 12/27/23 09:23 Dose: 1 gm Trazodone HCl (Trazodone Hcl 50 Mg Tablet) 50 mg PO BEDTIME MRX1 PRN PRN Reason: Insomnia Last Admin: 12/22/23 20:06 Dose: 50 mg Triamcinolone Acetonide (Triamcinolone Acet 0.1 % Cream 15 Gm Tube) 1 appl TOPICAL BID [facility]; Protocol Last Admin: 12/26/23 21:16 Dose: Not Given Allergies Allergies Allergy/AdvReac Type Severity Reaction Status Date / Time Cephalosporins Allergy Unknown Verified 12/19/23 23:46 sulfamethoxazole Allergy Rash Verified 12/19/23 23:46 [From Bactrim] trimethoprim Allergy Unknown Verified 12/19/23 23:46 haloperidol AdvReac Agitated Verified 12/19/23 23:46 Assessment & Plan Assessment & Plan (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: Status: Acute Code(s): F06.4 - Anxiety disorder due to known physiological condition (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 Reason for continued inpatient stay Substantial Risk for: inability to function, rapid decompensation and med/psych decompensation Time Spent With Patient Time: Total time managing care of this patient today ____ minutes.
[2023-12-27 12:29] LABS: Glucose, Whole Blood 228 mg/dL (60-115)
[2023-12-27] MEDS: Insulin Lispro 100 UNIT/ML 3 ML VIAL SUBCUT (12:58)
[2023-12-27 17:34] LABS: Glucose, Whole Blood 100 mg/dL (60-115)
[2023-12-27] MEDS: Loperamide HCl 2 MG CAPSULE PO (18:47)
[2023-12-27 20:00] VITALS: BP 114/79; PULSE 107; RESP 16; TEMP 36.3; O2SAT 97
[2023-12-27 20:29] LABS: Glucose, Whole Blood 135 mg/dL (60-115)
[2023-12-27] MEDS: LORazepam 0.5 MG TABLET PO (21:15)
[2023-12-27] MEDS: Pravastatin Sodium 20 MG TABLET PO (21:16)
[2023-12-28] MEDS: Omeprazole 40 MG CAPSULE.DR PO (06:37)
[2023-12-28] MEDS: Levothyroxine Sodium 75 MCG TABLET PO (06:37)
[2023-12-28 08:40] LABS: Glucose, Whole Blood 130 mg/dL (60-115)
[2023-12-28] MEDS: Divalproex Sodium ER 250 MG TAB.ER.24H 1250 MG PO ×2 (09:22→20:38)
[2023-12-28] MEDS: metFORMIN HCl ER 500 MG TAB.ER.24H 1000 MG PO (09:23)
[2023-12-28] MEDS: FLUoxetine HCl 20 MG CAPSULE 80 MG PO (09:23)
[2023-12-28] MEDS: Sodium Bicarbonate 650 MG TABLET 1300 MG PO ×3 (09:23→22:06)
[2023-12-28 09:24] VITALS: BP 142/68
[2023-12-28] MEDS: lisinopriL 2.5 MG TABLET PO (09:24)
[2023-12-28] MEDS: Sucralfate 1 GM TABLET PO ×4 (09:24→20:38)
[2023-12-28] MEDS: Lurasidone HCl 80 MG TABLET PO (09:24)
[2023-12-28] MEDS: glipiZIDE 10 MG TABLET PO (09:24)
[2023-12-28] MEDS: Gabapentin 400 MG CAPSULE PO ×4 (09:24→20:38)
[2023-12-28] MEDS: Fluticasone Propionate Nasal 16 GM SPRAY 1 SPRAY NOSTRIL-B (09:57)
[2023-12-28 12:38] LABS: Glucose, Whole Blood 338 mg/dL (60-115)
[2023-12-28] MEDS: Insulin Lispro 100 UNIT/ML 3 ML VIAL SUBCUT ×2 (13:00→18:10)
--- NOTE | 2023-12-28 17:13 | HO.PSYCHPN ---
Subjective Subjective Date of Service: 12/28/23 Reason For Visit: UNSPECIFIED MOOD DISORDER Interim History: Pt reports feeling well today. She reports her mood has improved. Improved self care. Wants to shower and making needs known. Denies SI/HI/AVH. Medication Compliance: Yes Review of Systems Review of Systems Denies abd pain today Yes all other systems are reviewed and are negative (denies today) Mental Status Exam Mental Status Exam Patient Appearance: Appropriate Patient Orientation: Person, Place and Situation Level of Consciousness: Alert Patient Behavior: Talkative, Cooperative, Timid and Good Eye Contact Mood Description: Calm Affect Description: Cheerful and Anxious Patient Cognition Impaired: Yes Ability to Follow Directions: Good Speech Pattern: Spontaneous Speech and Poor Articulation Memory Description: Episodic Impaired Hallucinations: None Delusions: Not Present Thought Process: Linear Thought Content: positive for Poverty of Content and positive for Slowed Thinking Diagnostics Vital Signs (24Hr): Vital Signs - 24 hr 12/27/23 20:00 12/28/23 09:24 12/28/23 09:30 Temperature 97.4 F Pulse Rate 107 H Respiratory Rate 16 Blood Pressure 114/79 142/68 H Pulse Oximetry 97 Oxygen Delivery Method Room Air Room Air BMI result Body Mass Index 27.5 Labs 12/26/23 09:24 12/26/23 09:24 Labs: Laboratory Results - last 48 hr 12/26/23 12/26/23 12/27/23 17:11 20:01 09:04 POC Glucose 200 H 106 149 H 12/27/23 12/27/23 12/27/23 12:23 17:19 20:17 POC Glucose 228 H 100 135 H 12/28/23 12/28/23 08:35 12:33 POC Glucose 130 H 338 H Medications Medications Current Medications Acetaminophen (Acetaminophen 325 Mg Tablet) 650 mg PO Q6H PRN PRN Reason: Headache/Pain Mild Scale (1-3) Last Admin: 12/27/23 01:28 Dose: 650 mg Al Hydroxide/Mg Hydroxide (Magnesium Hydrox/Alum Hydrox 30 Ml Oral.Susp) 30 ml PO Q6H PRN PRN Reason: Heartburn/Nausea Last Admin: 12/27/23 01:28 Dose: 30 ml Divalproex Sodium (Divalproex Sodium Er 250 Mg Tab.Er.24h) 1,250 mg PO BID [facility] Last Admin: 12/28/23 09:22 Dose: 1,250 mg Fluoxetine HCl (Fluoxetine Hcl 20 Mg Capsule) 80 mg PO DAILY [facility] Last Admin: 12/28/23 09:23 Dose: 80 mg Fluticasone Propionate (Fluticasone Propionate Nasal 16 Gm [place]) 1 spray NOSTRIL-B DAILY [facility] Last Admin: 12/28/23 09:57 Dose: 1 spray Gabapentin (Gabapentin 400 Mg Capsule) 400 mg PO QID [facility] Last Admin: 12/28/23 13:16 Dose: 400 mg Glipizide (Glipizide 10 Mg Tablet) 10 mg PO DAILY [facility] Last Admin: 12/28/23 09:24 Dose: 10 mg Glucose (Glucose Gel 15 Gm Gel..Gram.) 15 gm PO Q15M PRN; Protocol PRN Reason: per Hypoglycemia Standing Ord. Hydroxyzine HCl (Hydroxyzine Hcl 50 Mg Tablet) 50 mg PO BID PRN PRN Reason: Anxiety Last Admin: 12/27/23 21:16 Dose: 50 mg Hydroxyzine HCl (Hydroxyzine Hcl 25 Mg Tablet) 25 mg PO DAILY PRN PRN Reason: Anxiety Insulin Human Lispro (Insulin Lispro 100 Unit/Ml 3 Ml Vial) 0 unit SUBCUT QIDACHS [facility]; Protocol Last Admin: 12/28/23 13:00 Dose: 8 unit Levothyroxine Sodium (Levothyroxine Sodium 75 Mcg Tablet) 75 mcg PO DAILY@0600 [facility] Last Admin: 12/28/23 06:37 Dose: 75 mcg Lisinopril (Lisinopril 2.5 Mg Tablet) 2.5 mg PO DAILY [facility]; Protocol Last Admin: 12/28/23 09:24 Dose: 2.5 mg Loperamide HCl (Loperamide Hcl 2 Mg Capsule) 2 mg PO Q6H PRN PRN Reason: Diarrhea Last Admin: 12/27/23 18:47 Dose: 2 mg Lorazepam (Lorazepam 0.5 Mg Tablet) 0.5 mg PO DAILY PRN PRN Reason: Anxiety Last Admin: 12/27/23 21:15 Dose: 0.5 mg Lurasidone HCl (Lurasidone Hcl 80 Mg Tablet) 80 mg PO DAILY [facility] Last Admin: 12/28/23 09:24 Dose: 80 mg Magnesium Hydroxide (Milk Of Magnesia 30 Ml Oral.Susp) 30 ml PO DAILY PRN PRN Reason: Constipation Metformin HCl (Metformin Hcl Er 500 Mg Tab.Er.24h) 1,000 mg PO DAILY [facility] Last Admin: 12/28/23 09:23 Dose: 1,000 mg Non-Formulary Medication ([place]ale) 0 mg PO DAILY [facility] Omeprazole (Omeprazole 40 Mg Capsule.Dr) 40 mg PO DAILY@0630 [facility] Last Admin: 12/28/23 06:37 Dose: 40 mg Pravastatin Sodium (Pravastatin Sodium 20 Mg Tablet) 20 mg PO BEDTIME [facility] Last Admin: 12/27/23 21:16 Dose: 20 mg Sodium Bicarbonate (Sodium Bicarbonate 650 Mg Tablet) 1,300 mg PO TID [facility] Last Admin: 12/28/23 15:06 Dose: 1,300 mg Sucralfate (Sucralfate 1 Gm Tablet) 1 gm PO QID [facility] Last Admin: 12/28/23 13:16 Dose: 1 gm Trazodone HCl (Trazodone Hcl 50 Mg Tablet) 50 mg PO BEDTIME MRX1 PRN PRN Reason: Insomnia Last Admin: 12/22/23 20:06 Dose: 50 mg Triamcinolone Acetonide (Triamcinolone Acet 0.1 % Cream 15 Gm Tube) 1 appl TOPICAL BID [facility]; Protocol Last Admin: 12/28/23 12:13 Dose: Not Given Allergies Allergies Allergy/AdvReac Type Severity Reaction Status Date / Time Cephalosporins Allergy Unknown Verified 12/19/23 23:46 sulfamethoxazole Allergy Rash Verified 12/19/23 23:46 [From Bactrim] trimethoprim Allergy Unknown Verified 12/19/23 23:46 haloperidol AdvReac Agitated Verified 12/19/23 23:46 Assessment & Plan Assessment & Plan (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: Status: Acute Code(s): F06.4 - Anxiety disorder due to known physiological condition (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 12/27: continue current management and treatment plan. Reason for continued inpatient stay Substantial Risk for: inability to function, rapid decompensation and med/psych decompensation Time Spent With Patient Time: Total time managing care of this patient today ____ minutes.
[2023-12-28 17:42] LABS: Glucose, Whole Blood 174 mg/dL (60-115)
[2023-12-28] MEDS: Pravastatin Sodium 20 MG TABLET PO (20:38)
[2023-12-29] MEDS: hydrOXYzine HCL 25 MG TABLET PO (04:24)
[2023-12-29] MEDS: Acetaminophen 325 MG TABLET 650 MG PO (04:24)
[2023-12-29] MEDS: Levothyroxine Sodium 75 MCG TABLET PO (06:40)
[2023-12-29] MEDS: Omeprazole 40 MG CAPSULE.DR PO (06:40)
[2023-12-29 08:00] VITALS: BP 140/68; PULSE 111; RESP 20; TEMP 36.3; O2SAT 92
[2023-12-29 08:33] LABS: Glucose, Whole Blood 200 mg/dL (60-115)
[2023-12-29 09:22] VITALS: BP 140/68
[2023-12-29] MEDS: lisinopriL 2.5 MG TABLET PO (09:22)
[2023-12-29] MEDS: Divalproex Sodium ER 250 MG TAB.ER.24H 1250 MG PO ×2 (09:22→20:55)
[2023-12-29] MEDS: Lurasidone HCl 80 MG TABLET PO (09:23)
[2023-12-29] MEDS: Sucralfate 1 GM TABLET PO ×4 (09:23→22:16)
[2023-12-29] MEDS: FLUoxetine HCl 20 MG CAPSULE 80 MG PO (09:24)
[2023-12-29] MEDS: glipiZIDE 10 MG TABLET PO (09:25)
[2023-12-29] MEDS: Sodium Bicarbonate 650 MG TABLET 1300 MG PO ×3 (09:25→20:56)
[2023-12-29] MEDS: metFORMIN HCl ER 500 MG TAB.ER.24H 1000 MG PO (09:25)
[2023-12-29] MEDS: Gabapentin 400 MG CAPSULE PO ×4 (09:25→20:57)
[2023-12-29] MEDS: Insulin Lispro 100 UNIT/ML 3 ML VIAL SUBCUT ×4 (09:26→20:57)
[2023-12-29] MEDS: Fluticasone Propionate Nasal 16 GM SPRAY 1 SPRAY NOSTRIL-B (09:35)
[2023-12-29] MEDS: Triamcinolone Acet 0.1 % Cream 15 GM TUBE 1 APPL TOPICAL (09:35)
[2023-12-29 12:56] LABS: Glucose, Whole Blood 313 mg/dL (60-115)
--- NOTE | 2023-12-29 16:26 | P.PNPSI_ITS ---
Subjective Subjective Date of Service: 12/29/23 Reason For Visit: UNSPECIFIED MOOD DISORDER Subjective Notes: Conditional Voluntary Healthcare Proxy: No Guardianship: Yes Medical Problems Affecting Mental Status: No Interim History: Discharge scheduled for 12/31/23 Team meeting with Darby Fenton LCSW, Jocelyne Carrasco APRN [employer], pt's guardian, Suin Alok, DDS-Mason Ham, Suni Oconnor, Suni Eagle. Issues discussed were GI contributions to anxiety, use of prns and possibility of prn use in the future for pt along with parameters, roles of community providers, [facility], [facility] Team, [facility], OP team- Dr. Quinn, PCP Dr. Quiñonez, possibility of an endocrine consultation, and replacement of care providers who are moving to [place] this week. Reviewed with pt, who is pleased with the outcome and excited to return to her home. Medication Compliance: Yes Side effects from medications: No Attending Groups: No Review of Systems Acute medical concerns: No Medical Review of Systems: unchanged Review of Systems Review of Systems Yes all other systems are reviewed and are negative (denies today) Mental Status Exam Mental Status Exam Patient Appearance: Appropriate Patient Orientation: Person, Place and Situation Level of Consciousness: Alert Patient Behavior: Talkative, Cooperative, Timid and Good Eye Contact Mood Description: Calm Affect Description: Cheerful and Anxious Patient Cognition Impaired: Yes Ability to Follow Directions: Good Speech Pattern: Spontaneous Speech and Poor Articulation Memory Description: Episodic Impaired Hallucinations: None Delusions: Not Present Thought Process: Linear Thought Content: positive for Poverty of Content and positive for Slowed Thinking Diagnostics Vital Signs (24Hr): Vital Signs - 24 hr 12/29/23 08:00 12/29/23 09:22 Temperature 97.3 F Pulse Rate 111 H Respiratory Rate 20 Blood Pressure 140/68 H 140/68 H Pulse Oximetry 92 Oxygen Delivery Method Room Air BMI result Body Mass Index 27.5 Labs 12/26/23 09:24 12/26/23 09:24 Labs: Laboratory Results - last 48 hr 12/27/23 12/27/23 12/28/23 17:19 20:17 08:35 POC Glucose 100 135 H 130 H 12/28/23 12/28/23 12/29/23 12:33 17:37 08:19 POC Glucose 338 H 174 H 200 H 12/29/23 12:52 POC Glucose 313 H Medications Medications Current Medications Acetaminophen (Acetaminophen 325 Mg Tablet) 650 mg PO Q6H PRN PRN Reason: Headache/Pain Mild Scale (1-3) Last Admin: 12/29/23 04:24 Dose: 650 mg Al Hydroxide/Mg Hydroxide (Magnesium Hydrox/Alum Hydrox 30 Ml Oral.Susp) 30 ml PO Q6H PRN PRN Reason: Heartburn/Nausea Last Admin: 12/27/23 01:28 Dose: 30 ml Divalproex Sodium (Divalproex Sodium Er 250 Mg Tab.Er.24h) 1,250 mg PO BID [facility] Last Admin: 12/29/23 09:22 Dose: 1,250 mg Fluoxetine HCl (Fluoxetine Hcl 20 Mg Capsule) 80 mg PO DAILY [facility] Last Admin: 12/29/23 09:24 Dose: 80 mg Fluticasone Propionate (Fluticasone Propionate Nasal 16 Gm [place]) 1 spray NOSTRIL-B DAILY [facility] Last Admin: 12/29/23 09:35 Dose: 1 spray Gabapentin (Gabapentin 400 Mg Capsule) 400 mg PO QID [facility] Last Admin: 12/29/23 13:09 Dose: 400 mg Glipizide (Glipizide 10 Mg Tablet) 10 mg PO DAILY [facility] Last Admin: 12/29/23 09:25 Dose: 10 mg Glucose (Glucose Gel 15 Gm Gel..Gram.) 15 gm PO Q15M PRN; Protocol PRN Reason: per Hypoglycemia Standing Ord. Hydroxyzine HCl (Hydroxyzine Hcl 50 Mg Tablet) 50 mg PO BID PRN PRN Reason: Anxiety Last Admin: 12/27/23 21:16 Dose: 50 mg Hydroxyzine HCl (Hydroxyzine Hcl 25 Mg Tablet) 25 mg PO DAILY PRN PRN Reason: Anxiety Last Admin: 12/29/23 04:24 Dose: 25 mg Insulin Human Lispro (Insulin Lispro 100 Unit/Ml 3 Ml Vial) 0 unit SUBCUT QIDACHS [facility]; Protocol Last Admin: 12/29/23 13:10 Dose: 8 unit Levothyroxine Sodium (Levothyroxine Sodium 75 Mcg Tablet) 75 mcg PO DAILY@0600 [facility] Last Admin: 12/29/23 06:40 Dose: 75 mcg Lisinopril (Lisinopril 2.5 Mg Tablet) 2.5 mg PO DAILY [facility]; Protocol Last Admin: 12/29/23 09:22 Dose: 2.5 mg Loperamide HCl (Loperamide Hcl 2 Mg Capsule) 2 mg PO Q6H PRN PRN Reason: Diarrhea Last Admin: 12/27/23 18:47 Dose: 2 mg Lurasidone HCl (Lurasidone Hcl 80 Mg Tablet) 80 mg PO DAILY [facility] Last Admin: 12/29/23 09:23 Dose: 80 mg Magnesium Hydroxide (Milk Of Magnesia 30 Ml Oral.Susp) 30 ml PO DAILY PRN PRN Reason: Constipation Metformin HCl (Metformin Hcl Er 500 Mg Tab.Er.24h) 1,000 mg PO DAILY [facility] Last Admin: 12/29/23 09:25 Dose: 1,000 mg Non-Formulary Medication (Seasonale) 0 mg PO DAILY [facility] Omeprazole (Omeprazole 40 Mg Capsule.Dr) 40 mg PO DAILY@629 [facility] Last Admin: 12/29/23 06:40 Dose: 40 mg Pravastatin Sodium (Pravastatin Sodium 20 Mg Tablet) 20 mg PO BEDTIME [facility] Last Admin: 12/28/23 20:38 Dose: 20 mg Sodium Bicarbonate (Sodium Bicarbonate 650 Mg Tablet) 1,300 mg PO TID [facility] Last Admin: 12/29/23 14:26 Dose: 1,300 mg Sucralfate (Sucralfate 1 Gm Tablet) 1 gm PO QID [facility] Last Admin: 12/29/23 13:09 Dose: 1 gm Trazodone HCl (Trazodone Hcl 50 Mg Tablet) 50 mg PO BEDTIME MRX1 PRN PRN Reason: Insomnia Last Admin: 12/22/23 20:06 Dose: 50 mg Triamcinolone Acetonide (Triamcinolone Acet 0.1 % Cream 15 Gm Tube) 1 appl TOPICAL BID [facility]; Protocol Last Admin: 12/29/23 09:35 Dose: 1 appl Allergies Allergies Allergy/AdvReac Type Severity Reaction Status Date / Time Cephalosporins Allergy Unknown Verified 12/19/23 23:46 sulfamethoxazole Allergy Rash Verified 12/19/23 23:46 [From Bactrim] trimethoprim Allergy Unknown Verified 12/19/23 23:46 haloperidol AdvReac Agitated Verified 12/19/23 23:46 Assessment & Plan Assessment & Plan (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: Status: Acute Code(s): F06.4 - Anxiety disorder due to known physiological condition (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 12/27: continue current management and treatment plan. 12/28: continue current management and treatment plan. Reason for continued inpatient stay Substantial Risk for: rapid decompensation and med/psych decompensation Time Spent With Patient Time: Total time managing care of this patient today ____ minutes.
[2023-12-29] MEDS: Magnesium Hydrox/Alum Hydrox 30 ML ORAL.SUSP PO (17:30)
[2023-12-29 17:53] LABS: Glucose, Whole Blood 223 mg/dL (60-115)
[2023-12-29 20:45] LABS: Glucose, Whole Blood 202 mg/dL (60-115)
[2023-12-29] MEDS: Pravastatin Sodium 20 MG TABLET PO (20:57)
[2023-12-30] MEDS: Magnesium Hydrox/Alum Hydrox 30 ML ORAL.SUSP PO (02:17)
[2023-12-30] MEDS: Omeprazole 40 MG CAPSULE.DR PO (06:03)
[2023-12-30] MEDS: Levothyroxine Sodium 75 MCG TABLET PO (06:03)
[2023-12-30 08:00] VITALS: BP 122/84; PULSE 104; TEMP 36.2; O2SAT 95
[2023-12-30 08:26] LABS: Glucose, Whole Blood 181 mg/dL (60-115)
[2023-12-30] MEDS: Insulin Lispro 100 UNIT/ML 3 ML VIAL SUBCUT ×3 (08:47→18:48)
[2023-12-30] MEDS: Divalproex Sodium ER 250 MG TAB.ER.24H 1250 MG PO ×2 (08:49→20:26)
[2023-12-30] MEDS: Fluticasone Propionate Nasal 16 GM SPRAY 1 SPRAY NOSTRIL-B (08:49)
[2023-12-30 08:50] VITALS: BP 122/84
[2023-12-30] MEDS: Sodium Bicarbonate 650 MG TABLET 1300 MG PO ×3 (08:50→20:26)
[2023-12-30] MEDS: glipiZIDE 10 MG TABLET PO (08:50)
[2023-12-30] MEDS: lisinopriL 2.5 MG TABLET PO (08:50)
[2023-12-30] MEDS: metFORMIN HCl ER 500 MG TAB.ER.24H 1000 MG PO (08:51)
[2023-12-30] MEDS: FLUoxetine HCl 20 MG CAPSULE 80 MG PO (08:51)
[2023-12-30] MEDS: Gabapentin 400 MG CAPSULE PO ×4 (08:51→20:26)
[2023-12-30] MEDS: Sucralfate 1 GM TABLET PO ×4 (08:51→20:26)
[2023-12-30] MEDS: Lurasidone HCl 80 MG TABLET PO (08:51)
[2023-12-30 12:28] LABS: Glucose, Whole Blood 245 mg/dL (60-115)
--- NOTE | 2023-12-30 16:56 | HO.PSYCHPN ---
Subjective Subjective Date of Service: 12/30/23 Reason For Visit: UNSPECIFIED MOOD DISORDER Subjective Notes: Conditional Voluntary Healthcare Proxy: No Guardianship: Yes Medical Problems Affecting Mental Status: No Interim History: I am going home tomorrow. Reports she is very happy to discharge tomorrow. Denies current complaints, some GI discomfort and reports diarrhea x 1. Denies current pain. Care review with mother, Avis [phone]. Pt will need brand name Depakote only, review of meds, doses, diabetic diet, blood glucose levels, use of prn hydroxyzine, dates, times - 12/27/23 [phone] and 12/29/23 424. Mother reports a.m. is anxiety provoking for pt. Discussed prn parameters. Review of Gabapentin, Carafate and sx that indicate prn need. Pt will use [facility]. Call to PCP office to request consideration for endocrine consult which was discussed in 12/29/23 meetng. Medication Compliance: Yes Side effects from medications: No Attending Groups: No Review of Systems Acute medical concerns: No Medical Review of Systems: unchanged Review of Systems Review of Systems Yes all other systems are reviewed and are negative Mental Status Exam Mental Status Exam Patient Appearance: Appropriate Patient Orientation: Person, Place and Situation Level of Consciousness: Alert Patient Behavior: Talkative, Cooperative, Timid and Good Eye Contact Mood Description: Calm Affect Description: Cheerful and Anxious Patient Cognition Impaired: Yes Ability to Follow Directions: Good Speech Pattern: Spontaneous Speech and Poor Articulation Memory Description: Episodic Impaired Hallucinations: None Delusions: Not Present Thought Process: Linear Thought Content: positive for Poverty of Content and positive for Slowed Thinking Diagnostics Vital Signs (24Hr): Vital Signs - 24 hr 12/30/23 08:00 12/30/23 08:50 Temperature 97.1 F Pulse Rate 104 H Blood Pressure 122/84 122/84 Pulse Oximetry 95 Oxygen Delivery Method Room Air BMI result Body Mass Index 27.5 Labs 12/26/23 09:24 12/26/23 09:24 Labs: Laboratory Results - last 48 hr 12/28/23 12/29/23 12/29/23 17:37 08:19 12:52 POC Glucose 174 H 200 H 313 H 12/29/23 12/29/23 12/30/23 17:41 20:41 08:15 POC Glucose 223 H 202 H 181 H 12/30/23 12:24 POC Glucose 245 H Medications Medications Current Medications Acetaminophen (Acetaminophen 325 Mg Tablet) 650 mg PO Q6H PRN PRN Reason: Headache/Pain Mild Scale (1-3) Last Admin: 12/29/23 04:24 Dose: 650 mg Al Hydroxide/Mg Hydroxide (Magnesium Hydrox/Alum Hydrox 30 Ml Oral.Susp) 30 ml PO Q6H PRN PRN Reason: Heartburn/Nausea Last Admin: 12/30/23 02:17 Dose: 30 ml Divalproex Sodium (Divalproex Sodium Er 250 Mg Tab.Er.24h) 1,250 mg PO BID [facility] Last Admin: 12/30/23 08:49 Dose: 1,250 mg Fluoxetine HCl (Fluoxetine Hcl 20 Mg Capsule) 80 mg PO DAILY [facility] Last Admin: 12/30/23 08:51 Dose: 80 mg Fluticasone Propionate (Fluticasone Propionate Nasal 16 Gm [place]) 1 spray NOSTRIL-B DAILY [facility] Last Admin: 12/30/23 08:49 Dose: 1 spray Gabapentin (Gabapentin 400 Mg Capsule) 400 mg PO QID [facility] Last Admin: 12/30/23 12:52 Dose: 400 mg Glipizide (Glipizide 10 Mg Tablet) 10 mg PO DAILY [facility] Last Admin: 12/30/23 08:50 Dose: 10 mg Glucose (Glucose Gel 15 Gm Gel..Gram.) 15 gm PO Q15M PRN; Protocol PRN Reason: per Hypoglycemia Standing Ord. Hydroxyzine HCl (Hydroxyzine Hcl 50 Mg Tablet) 50 mg PO BID PRN PRN Reason: Anxiety Last Admin: 12/27/23 21:16 Dose: 50 mg Hydroxyzine HCl (Hydroxyzine Hcl 25 Mg Tablet) 25 mg PO DAILY PRN PRN Reason: Anxiety Last Admin: 12/29/23 04:24 Dose: 25 mg Insulin Human Lispro (Insulin Lispro 100 Unit/Ml 3 Ml Vial) 0 unit SUBCUT QIDACHS [facility]; Protocol Last Admin: 12/30/23 12:52 Dose: 4 unit Levothyroxine Sodium (Levothyroxine Sodium 75 Mcg Tablet) 75 mcg PO DAILY@0600 [facility] Last Admin: 12/30/23 06:03 Dose: 75 mcg Lisinopril (Lisinopril 2.5 Mg Tablet) 2.5 mg PO DAILY [facility]; Protocol Last Admin: 12/30/23 08:50 Dose: 2.5 mg Loperamide HCl (Loperamide Hcl 2 Mg Capsule) 2 mg PO Q6H PRN PRN Reason: Diarrhea Last Admin: 12/27/23 18:47 Dose: 2 mg Lorazepam (Lorazepam 0.5 Mg Tablet) 0.5 mg PO DAILY PRN PRN Reason: Anxiety Lurasidone HCl (Lurasidone Hcl 80 Mg Tablet) 80 mg PO DAILY [facility] Last Admin: 12/30/23 08:51 Dose: 80 mg Magnesium Hydroxide (Milk Of Magnesia 30 Ml Oral.Susp) 30 ml PO DAILY PRN PRN Reason: Constipation Metformin HCl (Metformin Hcl Er 500 Mg Tab.Er.24h) 1,000 mg PO DAILY [facility] Last Admin: 12/30/23 08:51 Dose: 1,000 mg Non-Formulary Medication (Seasonale) 0 mg PO DAILY [facility] Omeprazole (Omeprazole 40 Mg Capsule.Dr) 40 mg PO DAILY@0630 [facility] Last Admin: 12/30/23 06:03 Dose: 40 mg Pravastatin Sodium (Pravastatin Sodium 20 Mg Tablet) 20 mg PO BEDTIME [facility] Last Admin: 12/29/23 20:57 Dose: 20 mg Sodium Bicarbonate (Sodium Bicarbonate 650 Mg Tablet) 1,300 mg PO TID [facility] Last Admin: 12/30/23 15:54 Dose: 1,300 mg Sucralfate (Sucralfate 1 Gm Tablet) 1 gm PO QID [facility] Last Admin: 12/30/23 12:52 Dose: 1 gm Trazodone HCl (Trazodone Hcl 50 Mg Tablet) 50 mg PO BEDTIME MRX1 PRN PRN Reason: Insomnia Last Admin: 12/22/23 20:06 Dose: 50 mg Triamcinolone Acetonide (Triamcinolone Acet 0.1 % Cream 15 Gm Tube) 1 appl TOPICAL BID [facility]; Protocol Last Admin: 12/30/23 10:30 Dose: Not Given Allergies Allergies Allergy/AdvReac Type Severity Reaction Status Date / Time Cephalosporins Allergy Unknown Verified 12/19/23 23:46 sulfamethoxazole Allergy Rash Verified 12/19/23 23:46 [From Bactrim] trimethoprim Allergy Unknown Verified 12/19/23 23:46 haloperidol AdvReac Agitated Verified 12/19/23 23:46 Assessment & Plan Assessment & Plan (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: Status: Acute Code(s): F06.4 - Anxiety disorder due to known physiological condition (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 12/27: continue current management and treatment plan. 12/28: continue current management and treatment plan. 12/30/23: Discharge 12/31/23. Reason for continued inpatient stay Substantial Risk for: stable for discharge, rapid decompensation and med/psych decompensation Time Spent With Patient Time: Total time managing care of this patient today ____ minutes.
[2023-12-30 18:01] LABS: Glucose, Whole Blood 153 mg/dL (60-115)
[2023-12-30 20:00] VITALS: BP 139/76; PULSE 103; RESP 18; TEMP 36.3; O2SAT 96
[2023-12-30] MEDS: Pravastatin Sodium 20 MG TABLET PO (20:26)
[2023-12-30] MEDS: Acetaminophen 325 MG TABLET 650 MG PO (23:50)
[2023-12-31] MEDS: Levothyroxine Sodium 75 MCG TABLET PO (07:05)
[2023-12-31 08:03] LABS: Glucose, Whole Blood 175 mg/dL (60-115)
[2023-12-31] MEDS: Insulin Lispro 100 UNIT/ML 3 ML VIAL SUBCUT (09:23)
[2023-12-31] MEDS: metFORMIN HCl ER 500 MG TAB.ER.24H 1000 MG PO (09:24)
[2023-12-31] MEDS: Sodium Bicarbonate 650 MG TABLET 1300 MG PO (09:24)
[2023-12-31] MEDS: Divalproex Sodium ER 250 MG TAB.ER.24H 1250 MG PO (09:24)
[2023-12-31] MEDS: lisinopriL 2.5 MG TABLET PO (09:25)
[2023-12-31] MEDS: Lurasidone HCl 80 MG TABLET PO (09:25)
[2023-12-31] MEDS: glipiZIDE 10 MG TABLET PO (09:25)
[2023-12-31] MEDS: Gabapentin 400 MG CAPSULE PO (09:25)
[2023-12-31] MEDS: Omeprazole 40 MG CAPSULE.DR PO (09:25)
[2023-12-31] MEDS: FLUoxetine HCl 20 MG CAPSULE 80 MG PO (09:25)
[2023-12-31] MEDS: Sucralfate 1 GM TABLET PO (09:25)
[2023-12-31] MEDS: Triamcinolone Acet 0.1 % Cream 15 GM TUBE 1 APPL TOPICAL (09:37)
[2023-12-31] MEDS: Fluticasone Propionate Nasal 16 GM SPRAY 1 SPRAY NOSTRIL-B (09:37)
[2023-12-31 09:49] LABS: Valproate 63.6 mcg/mL (50.0-100.0)
[2023-12-31 09:55] LABS: Alanine Aminotransferase 22 U/L (0-31); Albumin Level 3.4 g/dL (3.5-5.0); Alkaline Phosphatase 56 U/L (39-117); Anion Gap 18 (12-20); Aspartate Amino Transferase 30 U/L (5-31); Bilirubin Total 0.4 mg/dL (0.0-1.0); Blood Urea Nitrogen 18 mg/dL (9-16); Calcium 9.6 mg/dL (8.4-10.2); Carbon Dioxide 19 mmol/L (22-29); Chloride 100 mmol/L (96-108); Creatinine Clr Calc Pharmacy 76.1; Estimated Glomerular Filt Rate > 60; Glucose Random 175 mg/dL (60-115); Potassium 4.8 mmol/L (3.3-5.1); Sodium 132 mmol/L (135-145); Total Protein 7.3 g/dL (6.5-8.0)
--- NOTE | 2023-12-31 10:51 | PM.PSYDC ---
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: Status: Acute (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: Status: Acute DS: Medications Discharge Medications Home Medications: Home Medications ?Medication ?Instructions ?Recorded ?Confirmed dexlansoprazole 60 mg 60 mg PO DAILY 12/19/23 12/20/23 capsule,biphase delayed release diclofenac sodium 1 % topical gel 1 ea topical QID 12/19/23 12/20/23 cyanocobalamin (vitamin B-12) 1,000 mcg PO DAILY 12/20/23 12/20/23 1,000 mcg tablet ergocalciferol (vitamin D2) 1,250 1,250 mcg PO Q2W 12/20/23 12/20/23 mcg (50,000 unit) capsule levonorgestrel 0.15 mg-ethinyl 1 tab PO DAILY 12/20/23 12/20/23 estradiol 30 mcg tablets,3 mos pack(91) pantoprazole 20 mg tablet,delayed 20 mg PO Q12H 12/20/23 12/20/23 release tirzepatide 2.5 mg/0.5 mL 2.5 mg subcut QWEEK 12/20/23 12/20/23 subcutaneous pen injector (Moe) Previous Rx's ?Medication ?Instructions ?Recorded divalproex 250 mg tablet,extended 250 mg PO BID #60 tabs 12/30/23 release 24 hr (Depakote ER) divalproex 500 mg tablet,extended 1,000 mg (2 x 500 mg) PO BID #120 12/30/23 release 24 hr (Depakote ER) tabs fluoxetine 20 mg capsule 80 mg (4 x 20 mg) PO DAILY #120 12/30/23 caps fluticasone propionate 50 1 spray intranasal BID #1 inhaler 12/30/23 mcg/actuation nasal spray,suspension gabapentin 400 mg capsule 400 mg PO QID #120 caps 12/30/23 glipizide 10 mg tablet 10 mg PO DAILY #30 tabs 12/30/23 hydroxyzine pamoate 50 mg capsule 50 mg PO BID PRN anxiety #60 caps 12/30/23 levothyroxine 75 mcg tablet 75 mcg PO QAM #30 tabs 12/30/23 lisinopril 2.5 mg tablet 2.5 mg PO DAILY #30 tabs 12/30/23 lorazepam 0.5 mg tablet 0.5 mg PO DAILY anxiety #7 tabs 12/30/23 lurasidone 80 mg tablet 80 mg PO DAILY #30 tabs 12/30/23 metformin 1,000 mg tablet 1,000 mg PO QAM #30 tabs 12/30/23 omeprazole 40 mg capsule,delayed 40 mg PO DAILY #30 caps 12/30/23 release pravastatin 20 mg tablet 20 mg PO BEDTIME cholesterol #30 12/30/23 tabs sodium bicarbonate 650 mg tablet 1,300 mg (2 x 650 mg) PO TID #180 12/30/23 tabs sucralfate 1 gram tablet 1 g PO QID #120 tabs 12/30/23 Mental Status Exam Mental Status Exam Patient Appearance: Appropriate Patient Orientation: Person, Place and Situation Level of Consciousness: Alert Patient Behavior: Talkative, Cooperative and Good Eye Contact Mood Description: Calm Affect Description: Cheerful Patient Cognition Impaired: Yes Ability to Follow Directions: Good Speech Pattern: Spontaneous Speech Memory Description: Episodic Impaired Hallucinations: None Delusions: Not Present Thought Process: Linear Thought Content: positive for Slowed Thinking Judgement: Fair Data Data Completed and Pending Completed studies during hospitalization [Text1]: 12/24/23 12/24/23 12/24/23 11:55 17:03 20:52 WBC RBC Hgb Hct MCV MCH MCHC RDW Plt Count MPV Immature Gran % (Auto) Neut % (Auto) Lymph % (Auto) [place] % (Auto) Eos % (Auto) Baso % (Auto) Lymph # (Auto) [place] # (Auto) Eos # (Auto) Baso # (Auto) Abs Immat Gran (auto) Absolute Neuts (auto) Absolute Nucleated RBC Nucleated RBC % (auto) Sodium Potassium Chloride Carbon Dioxide Anion Gap BUN Creatinine Estim Creat Clear Calc Estimated GFR POC Glucose 280 H 215 H 248 H Random Glucose Calcium Total Bilirubin AST ALT Alkaline Phosphatase Total Protein Albumin Valproic Acid 12/25/23 12/25/23 12/25/23 08:42 12:30 17:17 WBC RBC Hgb Hct MCV MCH MCHC RDW Plt Count MPV Immature Gran % (Auto) Neut % (Auto) Lymph % (Auto) [place] % (Auto) Eos % (Auto) Baso % (Auto) Lymph # (Auto) [place] # (Auto) Eos # (Auto) Baso # (Auto) Abs Immat Gran (auto) Absolute Neuts (auto) Absolute Nucleated RBC Nucleated RBC % (auto) Sodium Potassium Chloride Carbon Dioxide Anion Gap BUN Creatinine Estim Creat Clear Calc Estimated GFR POC Glucose 151 H 193 H 187 H Random Glucose Calcium Total Bilirubin AST ALT Alkaline Phosphatase Total Protein Albumin Valproic Acid 12/25/23 12/26/23 12/26/23 21:10 08:25 09:24 WBC 5.5 RBC 4.71 Hgb 15.1 Hct 43.8 MCV 93.0 MCH 32.1 MCHC 34.5 RDW 13.8 Plt Count TNP MPV TNP Immature Gran % (Auto) 0.7 H Neut % (Auto) 39.7 L Lymph % (Auto) 45.4 H [place] % (Auto) 9.1 Eos % (Auto) 4.4 H Baso % (Auto) 0.7 Lymph # (Auto) 2.5 [place] # (Auto) 0.5 Eos # (Auto) 0.2 Baso # (Auto) 0.0 Abs Immat Gran (auto) 0.04 H Absolute Neuts (auto) 2.2 Absolute Nucleated RBC 0.000 Nucleated RBC % (auto) 0.0 Sodium 136 Potassium 5.1 Chloride 99 Carbon Dioxide 21 L Anion Gap 21 H BUN 21 H Creatinine 0.98 Estim Creat Clear Calc 62.9 Estimated GFR > 60 POC Glucose 215 H 157 H Random Glucose 262 H Calcium 9.7 Total Bilirubin 0.3 AST 34 H ALT 21 Alkaline Phosphatase 54 Total Protein 7.8 Albumin 3.7 Valproic Acid 69.9 12/26/23 12/26/23 12/26/23 12:24 17:11 20:01 WBC RBC Hgb Hct MCV MCH MCHC RDW Plt Count MPV Immature Gran % (Auto) Neut % (Auto) Lymph % (Auto) [place] % (Auto) Eos % (Auto) Baso % (Auto) Lymph # (Auto) [place] # (Auto) Eos # (Auto) Baso # (Auto) Abs Immat Gran (auto) Absolute Neuts (auto) Absolute Nucleated RBC Nucleated RBC % (auto) Sodium Potassium Chloride Carbon Dioxide Anion Gap BUN Creatinine Estim Creat Clear Calc Estimated GFR POC Glucose 324 H 200 H 106 Random Glucose Calcium Total Bilirubin AST ALT Alkaline Phosphatase Total Protein Albumin Valproic Acid 12/27/23 12/27/23 12/27/23 09:04 12:23 17:19 WBC RBC Hgb Hct MCV MCH MCHC RDW Plt Count MPV Immature Gran % (Auto) Neut % (Auto) Lymph % (Auto) [place] % (Auto) Eos % (Auto) Baso % (Auto) Lymph # (Auto) [place] # (Auto) Eos # (Auto) Baso # (Auto) Abs Immat Gran (auto) Absolute Neuts (auto) Absolute Nucleated RBC Nucleated RBC % (auto) Sodium Potassium Chloride Carbon Dioxide Anion Gap BUN Creatinine Estim Creat Clear Calc Estimated GFR POC Glucose 149 H 228 H 100 Random Glucose Calcium Total Bilirubin AST ALT Alkaline Phosphatase Total Protein Albumin Valproic Acid 12/27/23 12/28/23 12/28/23 20:17 08:35 12:33 WBC RBC Hgb Hct MCV MCH MCHC RDW Plt Count MPV Immature Gran % (Auto) Neut % (Auto) Lymph % (Auto) [place] % (Auto) Eos % (Auto) Baso % (Auto) Lymph # (Auto) [place] # (Auto) Eos # (Auto) Baso # (Auto) Abs Immat Gran (auto) Absolute Neuts (auto) Absolute Nucleated RBC Nucleated RBC % (auto) Sodium Potassium Chloride Carbon Dioxide Anion Gap BUN Creatinine Estim Creat Clear Calc Estimated GFR POC Glucose 135 H 130 H 338 H Random Glucose Calcium Total Bilirubin AST ALT Alkaline Phosphatase Total Protein Albumin Valproic Acid 12/28/23 12/29/23 12/29/23 17:37 08:19 12:52 WBC RBC Hgb Hct MCV MCH MCHC RDW Plt Count MPV Immature Gran % (Auto) Neut % (Auto) Lymph % (Auto) [place] % (Auto) Eos % (Auto) Baso % (Auto) Lymph # (Auto) [place] # (Auto) Eos # (Auto) Baso # (Auto) Abs Immat Gran (auto) Absolute Neuts (auto) Absolute Nucleated RBC Nucleated RBC % (auto) Sodium Potassium Chloride Carbon Dioxide Anion Gap BUN Creatinine Estim Creat Clear Calc Estimated GFR POC Glucose 174 H 200 H 313 H Random Glucose Calcium Total Bilirubin AST ALT Alkaline Phosphatase Total Protein Albumin Valproic Acid 12/29/23 12/29/23 12/30/23 17:41 20:41 08:15 WBC RBC Hgb Hct MCV MCH MCHC RDW Plt Count MPV Immature Gran % (Auto) Neut % (Auto) Lymph % (Auto) [place] % (Auto) Eos % (Auto) Baso % (Auto) Lymph # (Auto) [place] # (Auto) Eos # (Auto) Baso # (Auto) Abs Immat Gran (auto) Absolute Neuts (auto) Absolute Nucleated RBC Nucleated RBC % (auto) Sodium Potassium Chloride Carbon Dioxide Anion Gap BUN Creatinine Estim Creat Clear Calc Estimated GFR POC Glucose 223 H 202 H 181 H Random Glucose Calcium Total Bilirubin AST ALT Alkaline Phosphatase Total Protein Albumin Valproic Acid 12/30/23 12/30/23 12/31/23 12:24 17:56 07:55 WBC RBC Hgb Hct MCV MCH MCHC RDW Plt Count MPV Immature Gran % (Auto) Neut % (Auto) Lymph % (Auto) [place] % (Auto) Eos % (Auto) Baso % (Auto) Lymph # (Auto) [place] # (Auto) Eos # (Auto) Baso # (Auto) Abs Immat Gran (auto) Absolute Neuts (auto) Absolute Nucleated RBC Nucleated RBC % (auto) Sodium Potassium Chloride Carbon Dioxide Anion Gap BUN Creatinine Estim Creat Clear Calc Estimated GFR POC Glucose 245 H 153 H 175 H Random Glucose Calcium Total Bilirubin AST ALT Alkaline Phosphatase Total Protein Albumin Valproic Acid 12/31/23 09:02 WBC Pending RBC Pending Hgb Pending Hct Pending MCV Pending MCH Pending MCHC Pending RDW Pending Plt Count Pending MPV Pending Immature Gran % (Auto) Pending Neut % (Auto) Pending Lymph % (Auto) Pending [place] % (Auto) Pending Eos % (Auto) Pending Baso % (Auto) Pending Lymph # (Auto) Pending [place] # (Auto) Pending Eos # (Auto) Pending Baso # (Auto) Pending Abs Immat Gran (auto) Pending Absolute Neuts (auto) Pending Absolute Nucleated RBC Pending Nucleated RBC % (auto) Pending Sodium 132 L Potassium 4.8 Chloride 100 Carbon Dioxide 19 L Anion Gap 18 BUN 18 H Creatinine 0.81 Estim Creat Clear Calc 76.1 Estimated GFR > 60 POC Glucose Random Glucose 175 H Calcium 9.6 Total Bilirubin 0.4 AST 30 ALT 22 Alkaline Phosphatase 56 Total Protein 7.3 Albumin 3.4 L Valproic Acid 63.6 DS: Summary Hospital Course Hospital Course: Admission to adult psychiatry in transfer from [facility] due to symptoms of anxiety and aggression at home. 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 Pt's mother believes mood and behavioral symptoms increase with pain. 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 Behaviorally, Luz Maria exhibited no dyscontrol during her admission. She was cooperative, pleasant, anxious initially as this was a new place and new people, however made alliances with the team easily. Environmental interventions were put in place to improve her supports-she was given a private room, directly next to the nursing station for added support and received added support when she was in the milieu from the team until she was able to communicate that she felt comfortable in the common areas without staff being with her. On 12/28 her OP team, guardian met with [facility] team via Zoom to discuss her care, prn medicine, GI sx contributions to anxiety, roles of community providers, plans for coverage for care providers who are making personal changes, and discussion of an endocrine consult, which was requested by [facility] to her PCP team. Her mother visited and met with [facility] team where her concerns and questions were addressed and her input on Luz Maria's progress contributed in furthering her plan of care. Medications remained stable. Depakote was changed to 1250 mg bid and was tolerated with levels of 88.7 on 12/22, 69.9 on 12/25 and 63.6 on 12/30. Labs on 12/30 indicated a mildly low sodium of 132, ranging during the admission of 136-138. Mother did bring in from [place] Calprotectin level of 200, completed in the ER prior to admission. Mother did bring this to her GI team's attention. Currently she is on a cancel list for a follow up GI appointment. Blood sugar levels did run hyperglycemic. Luz Maria was able to decide in discussion with the team that she would return to a diabetic diet. This intervention improved her levels. Hospitalist consultation on admission found no acute concerns, no need for specialty consultations. Luz Maria did experience some Chron's symtoms during admission which the team was able to manage with standard intervention. Luz Maria was excited to discharge to home, she denied SI/HI/AH/VH or mood symptoms of distress. She also denied any physical sx of pain or distress as well. She plans to spend the holiday with family and is aware that she is welcome to return if needed for further treatment. Status at Discharge Functional status at discharge: independent ambulation Overall status at discharge: patient is progressing back to baseline Time Spent with Patient Time attestation: Total time managing care of this patient today ____ minutes. Time spent: Less than 30 minutes Discharge Plan Discharge Anticipated Discharge Date/Time: 12/31/23 12:00 Patient Disposition: Home, Self-Care Discharge Diagnosis: Mood Disorder Anxiety Disorder Referrals: Psychiatry with Dr. Hollins [Other] - 01/19/24 1:45 pm (Telehealth) [place] [facility] [Other] - 1 Week (Meant to be used as an intervention to hospitalization.) Joe Abdalla MD [Physician] - 01/06/24 10:30 am (in office) Discharge Medications: New glipizide 10 mg Tablet 10 mg PO DAILY Qty: 30 0RF divalproex [Depakote ER] 250 mg tablet extended release 24 hr 250 mg PO BID Qty: 60 0RF Rx Instructions: Depakote ER 1250 mg twice per day BRAND NAME ONLY divalproex [Depakote ER] 500 mg tablet extended release 24 hr 1,000 mg PO BID Qty: 120 0RF Rx Instructions: Depakote ER 1250 mg twice per day BRAND NAME ONLY Continued diclofenac sodium 1 % gel 1 ea topical QID dexlansoprazole 60 mg capsule,biphase delayed releas 60 mg PO DAILY levonorgestrel-ethinyl estrad 0.15 mg-30 mcg (91) tablets,dose pack,3 month 1 tab PO DAILY Mounjaro 2.5 mg/0.5 mL pen injector 2.5 mg subcut QWEEK pantoprazole 20 mg tablet,delayed release (DR/EC) 20 mg PO Q12H cyanocobalamin (vitamin B-12) 1,000 mcg tablet 1,000 mcg PO DAILY ergocalciferol (vitamin D2) 1,250 mcg (50,000 unit) capsule 1,250 mcg PO Q2W sucralfate 1 gram tablet 1 g PO QID Qty: 120 0RF gabapentin 400 mg capsule 400 mg PO QID Qty: 120 0RF hydroxyzine pamoate 50 mg capsule 50 mg PO BID PRN (Reason: anxiety) Qty: 60 0RF omeprazole 40 mg capsule,delayed release(DR/EC) 40 mg PO DAILY Qty: 30 0RF levothyroxine 75 mcg tablet 75 mcg PO QAM Qty: 30 0RF lorazepam 0.5 mg tablet 0.5 mg PO DAILY Qty: 7 4RF sodium bicarbonate 650 mg tablet 1,300 mg PO TID Qty: 180 0RF metformin 1,000 mg tablet 1,000 mg PO QAM Qty: 30 0RF pravastatin 20 mg tablet 20 mg PO BEDTIME Qty: 30 0RF fluoxetine 20 mg capsule 80 mg PO DAILY Qty: 120 0RF fluticasone propionate 50 mcg/actuation spray,suspension 1 spray intranasal BID Qty: 1 0RF lisinopril 2.5 mg tablet 2.5 mg PO DAILY Qty: 30 0RF lurasidone 80 mg tablet 80 mg PO DAILY Qty: 30 0RF Discontinued divalproex [Depakote ER] 250 mg tablet extended release 24 hr 1,500 mg PO BID glimepiride 4 mg tablet 4 mg PO QAM metformin 1,000 mg tablet 1,000 mg PO QAM Discharge Orders: Discharge Order (Routine); Ordered 12/31/23 Ordered By: Helena Franco Diet: Diabetic diet Activity on Discharge: As tolerated Stand Alone Forms: Patient Portal Discharge page, Community Support Print Language: Icelandic Care Plan Goals: Mood and Behavioral Stabilization Health Concerns: Mood and Behavioral Stabilization Plan of Treatment: Attend scheduled appointments Take medications as directed Assessment: Pt interviewed prior to discharge and found to be fully oriented and without any SI/HI Pt has insight and demonstrates good judgment in terms of wanting to pursue treatment. Pt is not in imminent risk of harm to self or others and has a safety plan that includes presenting to the closest ER or calling 911 if feeling unsafe. Pt has been observed closely by nursing and unit staff throughout admission. Pt has not engaged in any behaviors that suggest dangerousness to self or other and has demonstrated appropriate behaviors and impulse control. Discharge Date/Time: 12/31/23 11:50
== END 2023-12-31 11:50 | disposition home or self-care (01) | DRG 880 ==
PROVIDERS: Physician Assistant Medical; Social Worker; Admitting Provider Psychiatry & Neurology Psychiatry; Visit Provider Clinical Nurse Specialist Psychiatric/Mental Health, Adult
DX: F41.9 Anxiety disorder, unspecified (principal); K50.90 Crohn's disease, unspecified, without complications; F39 Unspecified mood [affective] disorder; S06.9XAS Unspecified intracranial injury with loss of consciousness status unknown, sequela; X58.XXXS Exposure to other specified factors, sequela; E11.9 Type 2 diabetes mellitus without complications; E03.9 Hypothyroidism, unspecified; Z79.84 Long term (current) use of oral hypoglycemic drugs; Z79.890 Hormone replacement therapy; Z79.899 Other long term (current) drug therapy
CPT/HCPCS: 36415; 80053; 80061; 80164; 82140; 82565; 82607; 82746; 82947; 83036; 83735; 84439; 84443; 85025; 97162

== ENCOUNTER → 2023-12-19 19:18 | Outpatient (BNV) | payer MEDICARE, MEDICAID, SELFPAY | PROVIDERS: Admitting Provider Psychiatry & Neurology Psychiatry; Visit Provider Physician Assistant | DX: Z02.2 Encounter for examination for admission to residential institution (principal) | CPT/HCPCS: 99429 ==

== ENCOUNTER → 2023-12-19 19:18 | Outpatient (BNV) | payer MEDICARE, MEDICAID, SELFPAY | PROVIDERS: Admitting Provider Psychiatry & Neurology Psychiatry; Visit Provider Clinical Nurse Specialist Psychiatric/Mental Health | DX: F06.4 Anxiety disorder due to known physiological condition (principal); F06.30 Mood disorder due to known physiological condition, unspecified; S06.9XAS Unspecified intracranial injury with loss of consciousness status unknown, sequela | CPT/HCPCS: 90792; 99231; 99232; 99238 ==